=== PATIENT | female | born 2005 | race Hispanic/Latino ===

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

== ENCOUNTER 2024-01-08 13:50 | Observation (INO) | payer BC, OTHER, SELFPAY ==
[2024-01-08 14:16] VITALS: BP 130/88; PULSE 178
[2024-01-08 14:30] VITALS: BP 128/84; PULSE 110
[2024-01-08 14:45] VITALS: BP 129/82; PULSE 92
--- NOTE | 2024-01-08 14:48 | OBADM ---
This patient, Danielle Marquez, admitted to the OB room [facility] for observation. Patient/family oriented to hospital policies and general routines including ID bracelet, bed and alarms, visiting hours, pain management, procedures, bathroom and other care routines, personal items, smoking policy, room service/diet, and visiting hours. Patient/Family are encouraged to report perceived risks to care and to ask questions if they do not understand what they are told or what they should do.
[2024-01-08 14:50] LABS: Add Urine Microscopic? NO; Appearance Urine Clear (Clear); Bilirubin Urine Negative (Negative); Blood Urine Negative (Negative); Color Urine Yellow (Yellow); Glucose Urine UA Negative (Negative); Ketones Urine Negative (Negative); Leukocyte Esterase Ur Negative LEU/UL (Negative); Nitrate Urine Negative (Negative); Protein Urine Negative (Negative); Specific Grav Ur 1.006 (1.001-1.035); Urobilinogen Urine 0.2 mg/dL (<2.0); pH Urine 7.5 (5.0-9.0)
[2024-01-08 15:16] VITALS: BP 133/88; PULSE 107
[2024-01-08] MEDS: ONDANSETRON INJ 4 MG/2 ML VIAL IV PUSH (15:29)
[2024-01-08 15:37] VITALS: BMI 37.5
[2024-01-08 15:47] LABS: Alanine Aminotransferase 21 U/L (6-35); Albumin Level 3.5 g/dL (3.7-5.6); Alkaline Phosphatase 191 U/L (45-116); Anion Gap 8 mmol/L (4-12); Aspartate Amino Transferase 22 U/L (14-36); Bilirubin,Total 0.3 mg/dL (0.2-1.3); Blood Urea Nitrogen 7 mg/dL (8-21); Calcium 9.3 mg/dL (8.9-10.7); Carbon Dioxide 23 mmol/L (22-30); Chloride 103 mmol/L (98-107); Estimated CRCL calculation 195 ml/min; Estimated Glomerular Filt Rate > 60; Glucose 73 mg/dL (65-110); Potassium 4.1 mmol/L (3.4-5.0); Sodium 134 mmol/L (134-143)
--- NOTE | 2024-01-10 21:58 | P.PNOB_ITS ---
OB - Triage/Final Diagnosis Visit Information Comments/Additional reasons for admission: I have assessed the risk for this patient, Danielle Maqruez, and determined that she would benefit from observation care. Evaluation Laboratory results: Laboratory Tests 01/08/24 01/08/24 14:41 15:26 Sodium 134 Potassium 4.1 Chloride 103 Carbon Dioxide 23 Anion Gap 8 BUN 7 L Creatinine 0.40 L Estim Creat Clear Calc 195 Estimated GFR > 60 Glucose 73 Calcium 9.3 Total Bilirubin 0.3 AST 22 ALT 21 Alkaline Phosphatase 191 H Total Protein 7.0 Albumin 3.5 L Urine Color Yellow Urine Appearance Clear Urine pH 7.5 Ur Specific [place] 1.006 Urine Protein Negative Urine Glucose (UA) Negative Urine Ketones Negative Ur Blood (Man) Negative Urine Nitrate Negative Urine Bilirubin Negative Urine Urobilinogen 0.2 Leukocyte Esterase Rfl Negative Final Diagnosis (1) Nausea & vomiting: Code(s): R11.2 - Nausea with vomiting, unspecified Status: Acute
== END 2024-01-08 16:30 | disposition home or self-care (01) ==
PROVIDERS: Admitting Provider Obstetrics & Gynecology; Referring Provider Advanced Practice Midwife; Visit Provider Obstetrics & Gynecology
DX: O21.2 Late vomiting of pregnancy (principal); Z3A.35 35 weeks gestation of pregnancy
CPT/HCPCS: 36415; 80053; 81003; 96374; G0378; G0379; J2405

== ENCOUNTER 2024-01-11 16:12 | Outpatient (CLI) | payer BC, OTHER, SELFPAY ==
--- NOTE | ~2024-01-11 | US_ITS ---
RIGHT LOWER EXTREMITY VENOUS ULTRASOUND Ordering provider: Ninoska Loredo CNM History: . pain in limb . Comparison: None. FINDINGS: --COMMON FEMORAL: Patent and free of thrombus. Normal compressibility, phasic flow and augmentation. --PROXIMAL SUPERFICIAL FEMORAL: Patent and free of thrombus. Normal compressibility, phasic flow and augmentation. --DISTAL SUPERFICIAL FEMORAL: Patent and free of thrombus. Normal compressibility, phasic flow and au gmentation. --POPLITEAL: Patent and free of thrombus. Normal compressibility, phasic flow and augmentation. --POSTERIOR TIBIAL: Patent and free of thrombus. Normal compressibility, phasic flow and augmentation . IMPRESSION: Negative right lower extremity venous US. No deep vein thrombosis. Reviewed, dictated and finalized at location A.
== END 2024-01-11 16:13 | disposition home or self-care (01) ==
LOC: ANHIMG 16:13
PROVIDERS: Visit Provider Advanced Practice Midwife
DX: M79.609 Pain in unspecified limb (principal)
CPT/HCPCS: 93971

== ENCOUNTER 2024-01-13 09:32 | Emergency (ER) | payer BC, OTHER, SELFPAY ==
--- NOTE | 2024-01-13 11:29 | ED.LOWEXIN ---
HPI - Extremity Injury (Lower) General Chief Complaint: Extremity Injury, Lower Stated Complaint: right leg pain Time Seen by Provider: 01/13/24 11:14 History of Present Illness HPI Narrative: 18-year-old female presenting with right leg pain. Patient is approximately 36 weeks . States that for the last couple of days she has had a lot of pain in her right upper thigh. She had an ultrasound performed which showed no DVT but the pain is continued. No recent injuries. She called her OB today who told her to come to the ER. States that she has taken Tylenol with minimal relief. No numbness or weakness. No vaginal bleeding or discharge. No complaints regarding . Related Data Home Medications Medication Instructions Recorded Confirmed vit no.95-ferrous 1 tablet PO DAILY 06/27/23 10/12/23 fumarate 28 mg-folic acid 800 mcg tablet () vitamin B6-vitamin E-magnesium 1 tablet PO DAILY 06/27/23 10/12/23 tablet Allergies Allergy/AdvReac Type Severity Reaction Status Date / Time No Known Allergies Allergy Verified 01/13/24 11:15 Review of Systems Review of Systems: All systems reviewed & are unremarkable except as noted in HPI and below PMFSH Past Medical History Medical History Healthy female adult Exam Narrative: GENERAL: Well-appearing, no acute distress HEAD: Normocephalic, atraumatic. EYES: PERRLA and EOMI. ENT: Mucous membranes moist. NECK: Supple. CHEST: Clear to auscultation. No respiratory distress. HEART: Regular rate and rhythm ABDOMEN: Soft, appropriately gravid EXTREMITIES: Normal range of motion. tenderness in medial upper R thigh, no erythema or ecchymosis, no evidence of cellulitis or abscess, neurovascularly intact SKIN: Warm, dry, no rash. NEURO: Alert and oriented x3. PSYCH: Normal mood and affect. Course Vital Signs Vital signs: Vital Signs Temperature 97.7 F 01/13/24 11:54 Pulse Rate 116 H 01/13/24 11:54 Respiratory Rate 01/13/24 11:54 Blood Pressure 134/87 01/13/24 11:54 Pulse Oximetry 96 01/13/24 11:54 Temperature 97.7 F 01/13/24 11:54 Pulse Rate 116 H 01/13/24 11:54 Respiratory Rate 20 01/13/24 11:54 Blood Pressure 134/87 01/13/24 11:54 Pulse Oximetry 96 01/13/24 11:54 MDM - Extremity Injury (Lower) MDM Narrative Medical decision making narrative: 18-year-old female presenting with right thigh pain. Has already been evaluated for DVT which is negative. Exam remarkable for the above. She does have tenderness in medial aspect of her right upper thigh. Neurovascularly intact. No evidence of infection or trauma. Suspect muscular pain/spasm. Patient is safe for supportive care on an outpatient basis. Will send in for Tylenol and recommend using a heating pad. Patient will follow-up with her OB in 2 days. Appropriate return precautions given. Discharged in stable condition. Differential Diagnosis Differential diagnosis: Likely other (thigh pain, musculoskeletal pain) Medical Records Attestation: I reviewed the patient's medical records. Medical records narrative: Pt had DVT study two days ago that was negative. Critical Care Time Critical Care Time Critical Care Time: No Discharge Plan Discharge Clinical Impression: Pain in right thigh, Third trimester Patient Disposition: Home, Self-Care Condition: Stable Instructions: Antibiotic Form, Musculoskeletal Pain (ED) Additional Instructions: Please take the Tylenol as prescribed. You may use a heating pad to help with the pain as well. Follow-up with your OB as scheduled. If your symptoms worsen or other concerning symptoms arise, please return to the ER. Prescriptions: New acetaminophen [Tylenol Extra Strength] 500 mg tablet 1,000 mg PO Q8H PRN (Reason: pain) Qty: 20 0RF No Action ondansetron 4 mg tablet,disintegrating 4 mg PO Q6-8H P
[2024-01-13 11:54] VITALS: BP 134/87; PULSE 116; RESP 20; TEMP 36.5; O2SAT 96
[2024-01-13] MEDS: ACETAMINOPHEN 500 MG TABLET 1000 MG PO (12:12)
== END 2024-01-13 12:15 | disposition home or self-care (01) ==
PROVIDERS: Emergency Provider Emergency Medicine
DX: O99.891 Other specified diseases and conditions complicating pregnancy (principal); M79.651 Pain in right thigh; Z3A.36 36 weeks gestation of pregnancy
CPT/HCPCS: 99283; A9270

== ENCOUNTER 2024-01-25 10:31 | Inpatient (IN) | payer BC, OTHER, SELFPAY ==
[2024-01-25] VITALS (56 sets, daily range): BP systolic 77–148; BP diastolic 36–99; PULSE 67–128; RESP 18–22; TEMP 36.2–36.9; O2SAT 97–100; BMI 40.3
[2024-01-25 11:46] LABS: Add Urine Microscopic? YES; Appearance Urine Clear (Clear); Bacteria Urine Rare /hpf; Bilirubin Urine Negative (Negative); Blood Urine Negative (Negative); Color Urine Yellow (Yellow); Glucose Urine UA Negative (Negative); Ketones Urine Negative (Negative); Leukocyte Esterase Ur Negative LEU/UL (Negative); Need Manual Microscopic Reviewed; Nitrate Urine Negative (Negative); Protein Urine 4+ mg/dL (Negative); RBC Urine 0-2 /hpf (0-2); Specific Grav Ur 1.016 (1.001-1.035); Squamous Epithelial Cell Urine Few /hpf (Few); Urobilinogen Urine 0.2 mg/dL (<2.0); WBC Urine 0-5 /hpf (0-3); pH Urine 6.5 (5.0-9.0)
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
[2024-01-25 12:38] LABS: Creatinine Urine 63.3 mg/dL
[2024-01-25 12:40] LABS: Basophils Percent Auto 0.3 % (0.2-1.2); Eosinophils Percent Auto 0.4 % (0-4.4); Hematocrit 34.4 % (37.0-47.0); Hemoglobin 11.5 g/dL (12.0-15.0); Immature Granulocyte Absolute 0.08 K/mm3 (0.00-0.031); Immature Granulocyte Percent A 0.9 % (0-0.5); Lymphocytes Percent Auto 18.7 % (18.3-44.2); Mean Corpuscular HGB Conc 33.4 g/dl (32-36); Mean Corpuscular Hemoglobin 26.7 pg (26-34); Mean Platelet Volume 12.8 fl (7.4-10.4); Monocytes Absolute Auto 0.6 K/mm3 (0.1-0.6); Monocytes Percent Auto 6.4 % (2.6-8.5); Neutrophils Absolute Auto 6.6 K/mm3 (1.3-6.7); Neutrophils Percent Auto 73.3 % (45.5-73.1); Nucleated Red Blood Cells Perc 0.3 % (0.0-0.2); Platelet Count Result 214 k/mm3 (150-375); Red Cell Distribution Width 15.6 % (11.5-14.5); White Blood Count 9.1 K/mm3 (4.5-10.0)
[2024-01-25 12:52] LABS: Alanine Aminotransferase 13 U/L (6-35); Albumin Level 3.4 g/dL (3.7-5.6); Alkaline Phosphatase 235 U/L (45-116); Anion Gap 8 mmol/L (4-12); Aspartate Amino Transferase 20 U/L (14-36); Bilirubin,Total 0.3 mg/dL (0.2-1.3); Blood Urea Nitrogen 10 mg/dL (8-21); Calcium 9.3 mg/dL (8.9-10.7); Carbon Dioxide 19 mmol/L (22-30); Chloride 105 mmol/L (98-107); Estimated Glomerular Filt Rate > 60; Glucose 84 mg/dL (65-110); Potassium 4.4 mmol/L (3.4-5.0); Sodium 132 mmol/L (134-143); Uric Acid 4.4 mg/dL (3.0-5.9)
[2024-01-25 13:11] LABS: Rapid Plasma Reagin Non-Reactive (NonReactive)
[2024-01-25 13:12] LABS: Total Protein Urine Random > 600 mg/dL
[2024-01-25 13:13] LABS: Ur Ttl Prot Creatinine Ratio > 9.48 mg/mg (0-0.20)
[2024-01-25 13:32] LABS: HIV 1/2 Ab P24 Ag Result Negative (Negative)
--- NOTE | 2024-01-25 14:27 | LDADM ---
This patient, Danielle Marquez, was admitted to [facility] on 01/25/24 at 13:28. Plans for labor, pain management and were discussed with patient. Patient/family oriented to hospital policies and general routines including ID bracelet, bed and alarms, visiting hours, pain management, procedures, bathroom and other care routines, personal items, smoking policy, room service/diet and guest tray routines, security routines, and visiting hours. Patient/Family are encouraged to report perceived risks to care and to ask questions if they do not understand what they are told or what they should do. See [facility] for further documentation.
[2024-01-25] MEDS: LACTATED RINGERS 1,000 ML 125 ML IV CONT (15:43)
[2024-01-25] MEDS: ACETAMINOPHEN 500 MG TABLET 1000 MG PO (15:44)
[2024-01-25] MEDS: ONDANSETRON INJ 4 MG/2 ML VIAL IV PUSH (16:42)
[2024-01-25] MEDS: FAMOTIDINE 20 MG/2 ML VIAL IV PUSH (16:42)
[2024-01-25 17:19] LABS: Rubella IgG Antibody 64.9 IU/ML
--- NOTE | 2024-01-25 17:57 | WPDHPUPDATE1 ---
History and Physical Update Update Date/Time: 01/25/24 15:57 History and Physical has been reviewed, including an updated exam of the patient. Patient meets criteria for preeclampsia without severe features with elevated BPs and severe proteinuria. Denies headaches, vision changes, chest pain, dyspnea, RUQ pain or epigastric pain. Risks and benefits of primary c section for suspected macrosomia discussed with patient who voices understanding and desires to proceed. Risks, benefits, and alternatives have been discussed and questions answered. Patient agrees to proceed with procedure.
--- NOTE | 2024-01-25 18:01 | P.PCNOB_ITS ---
OB - Delivery Note Procedure Delivery date: 01/25/24 Pre-op diagnosis: Macrosomia and Preeclampsia w/o severe features Post-op Diagnosis: Same Delivery monitor: External FHT Prior to decision for section, ACOG/SMFM labor guidelines were considered and discussed with the patient and staff. Decision made to proceed with the section.: Yes Procedure Performed: Primary Primary branch: low cervical, transverse Surgeon: Jovanny Martinez MD Anesthesia type: Spinal Description of Procedure/Findings: The patient was taken to the operating room where she was placed in the dorsal supine position with a leftward tilt. The electronic monitor was placed and heart rate was found to be reassuring. She was prepped and draped in the normal sterile fashion, and anesthesia was checked to be adequate. A Pfannenstiel skin incision was made with the scalpel and carried through to the underlying layer of fascia with the scalpel. The fascia was incised in the midline and the incision extended laterally with the Rudolph scissors. The superior aspect of the fascial incision was then grasped with Reinaldo clamps, elevated, and the underlying rectus muscles dissected off bluntly and with Rudolph scissors. Attention was then turned to the inferior aspect of the fascial incision, which in similar fashion was grasped, elevated, and the rectus muscles dissected off.? The rectus muscles were then in the midline, and the peritoneum entered bluntly. The peritoneal incision was extended superiorly and inferiorly with good visualization of the bladder. With the bladder blade providing retraction and visualization, the lower uterine segment was incised in a transverse fashion with the scalpel. The uterine incision was then extended laterally. The bladder blade was removed and the 's head was elevated and delivered atraumatically. The remainder of the infant was then delivered without difficulty, and the infant's nose and mouth were suctioned with the bulb suction. The umbilical cord was doubly clamped and cut. The infant was then handed off to the waiting nursing staff. Specimens then obtained as listed below. The placenta was then removed manually and the uterus was exteriorized and cleared of all clots and debris. The uterine incision was repaired with 0- Monocryl in a running, interlocked fashion. The posterior cul-de-sac was manually cleared of all clots and debris. The uterus was returned to the abdomen. The gutters were then manually cleared of all clots and debris.? The uterine incision was visualized to be hemostatic. The fascia was reapproximated with 0-Vicryl in a running fashion. The subcutaneous tissues were irrigated with warmed normal saline, and hemostasis was assured. The subcutaneous tissue was greater than 2 cm and closed in a running fashion with 2-0 plain gut suture.? The skin was closed with 4-0 monocryl in a running subcuticular stitch. Fundal pressure was applied to express remaining intrauterine clots and debris. The patient tolerated the procedure well. Sponge, lap, and needle counts were correct times three per nursing. The patient was taken to the recovery room in stable condition. Specimen: No Estimated Blood Loss: 785 Pathology: None sent Complications: No immediate complications Condition: Stable Disposition: Floor Baby Date of : 01/25/24 Gestational Age by Date: 37 gender: Male Weight (pounds): 10 Weight (ounces): 3 presentation: vertex Placenta delivery description: Expressed Cord Vessel Description: 3 Vessels and Delayed Cord Clamping
[2024-01-25] MEDS: OXYTOCIN 30 UNITS/NS 500 ML 30 UNITS/500 ML BAG 125 UNITS IV CONT (19:35)
--- NOTE | 2024-01-25 20:44 | OBPPTRN ---
Patient transferred to post room #284 via bed. Support person present. Oriented to unit, room, information board, rooming in, admission packet and security measures. Patient verbalizes understanding.
[2024-01-25] MEDS: diphenhydrAMINE HCl INJ 50 MG/ML VIAL 25 MG IV PUSH (20:45)
--- NOTE | 2024-01-25 21:15 | PC.NURSE ---
Surgery Recovery completed at 2009, patient transferred to first floor nursery to visit . Patient transferred to OB 2nd floor at 2044.
[2024-01-26 00:07] VITALS: BP 137/73; PULSE 124; RESP 20; TEMP 37.9; O2SAT 98
[2024-01-26] MEDS: ACETAMINOPHEN 325 MG TABLET 650 MG PO ×4 (00:15→23:00)
[2024-01-26] MEDS: KETOROLAC 15 MG/ML VIAL (*BKC) IV PUSH ×2 (00:15→06:45)
[2024-01-26 03:49] VITALS: BP 136/76; PULSE 118; RESP 20; TEMP 37.6; O2SAT 98
[2024-01-26 05:24] LABS: Basophils Percent Auto 0.2 % (0.2-1.2); Eosinophils Percent Auto 0.2 % (0-4.4); Hematocrit 28.1 % (37.0-47.0); Hemoglobin 9.2 g/dL (12.0-15.0); Immature Granulocyte Absolute 0.05 K/mm3 (0.00-0.031); Immature Granulocyte Percent A 0.4 % (0-0.5); Lymphocytes Absolute Auto 1.72 K/mm3 (0.9-3.2); Lymphocytes Percent Auto 13.5 % (18.3-44.2); Mean Corpuscular HGB Conc 32.7 g/dl (32-36); Mean Corpuscular Hemoglobin 26.1 pg (26-34); Mean Corpuscular Volume 79.8 fl (80-100); Mean Platelet Volume 12.9 fl (7.4-10.4); Monocytes Absolute Auto 0.8 K/mm3 (0.1-0.6); Monocytes Percent Auto 6.4 % (2.6-8.5); Neutrophils Absolute Auto 10.1 K/mm3 (1.3-6.7); Neutrophils Percent Auto 79.3 % (45.5-73.1); Platelet Count Result 161 k/mm3 (150-375); Red Blood Count 3.52 M/mm3 (4.2-5.4); Red Cell Distribution Width 15.7 % (11.5-14.5); White Blood Count 12.8 K/mm3 (4.5-10.0)
[2024-01-26 06:45] VITALS: BP 150/94; PULSE 110; RESP 18; TEMP 36.8; O2SAT 96
[2024-01-26] MEDS: diphenhydrAMINE HCl INJ 50 MG/ML VIAL 25 MG IV PUSH (06:52)
--- NOTE | 2024-01-26 08:30 | PC.NURSE ---
Introductions were made, then consulted with patient to assess needs related to . Infant was transferred to [facility]. Mother states that she would like to pump. I educated mother that pumping as soon as possible would be best to develop a supply because she delivered her son last night. Mother states understanding but denies wanting to start pumping at this time. She states that she is going to leave on a pass to see her son and would like to talk about pumping again once she returns.
--- NOTE | 2024-01-26 08:33 | PM.OBPNVD ---
OB - PN: Subj Subjective Date/time seen: 01/26/24 08:33 Patient comments: no complaints, pain well controlled, tolerating diet and flatus present OB - PN: Obj Data Labs 01/26/24 03:51 01/25/24 12:27 Labs: Laboratory Results - last 24 hr 01/25/24 01/25/24 01/25/24 11:06 12:27 15:33 WBC 9.1 RBC 4.30 Hgb 11.5 L Hct 34.4 L MCV 80.0 MCH 26.7 MCHC 33.4 RDW 15.6 H Plt Count 214 MPV 12.8 H Immature Gran % (Auto) 0.9 H Neut % (Auto) 73.3 H Lymph % (Auto) 18.7 [place] % (Auto) 6.4 Eos % (Auto) 0.4 Baso % (Auto) 0.3 Lymph # (Auto) 1.70 [place] # (Auto) 0.6 Eos # (Auto) 0.0 Baso # (Auto) 0.0 Abs Immat Gran (auto) 0.08 H Absolute Neuts (auto) 6.6 Absolute Nucleated RBC 0.030 H Nucleated RBC % 0.3 H Sodium 132 L Potassium 4.4 Chloride 105 Carbon Dioxide 19 L Anion Gap 8 BUN 10 Creatinine 0.50 L Estim Creat Clear Calc Not Reportable Estimated GFR > 60 Glucose 84 Uric Acid 4.4 Calcium 9.3 Total Bilirubin 0.3 AST 20 ALT 13 Alkaline Phosphatase 235 H Total Protein 7.0 Albumin 3.4 L Urine Color Yellow Urine Appearance Clear Urine pH 6.5 Ur Specific [place] 1.016 Urine Protein 4+ H Urine Glucose (UA) Negative Urine Ketones Negative Ur Blood (Man) Negative Urine Nitrate Negative Urine Bilirubin Negative Urine Urobilinogen 0.2 Add Ur Microanalysis Reviewed Leukocyte Esterase Rfl Negative Urine RBC 0-2 Urine WBC 0-5 Ur Squamous Epith Cells Few Urine Bacteria Rare Urine Casts 3-5 U Random Total Protein > 600 Urine Creatinine 63.3 Protein/Creat Ratio 2 > 9.48 H RPR Non-reactive HIV 1&2 Ab/P24 Ag 4thGn Negative Rubella IgG Antibody 64.9 Blood Type O Positive Antibody Screen Negative 01/26/24 03:51 WBC 12.8 H RBC 3.52 L Hgb 9.2 L Hct 28.1 L MCV 79.8 L MCH 26.1 MCHC 32.7 RDW 15.7 H Plt Count 161 MPV 12.9 H Immature Gran % (Auto) 0.4 Neut % (Auto) 79.3 H Lymph % (Auto) 13.5 L [place] % (Auto) 6.4 Eos % (Auto) 0.2 Baso % (Auto) 0.2 Lymph # (Auto) 1.72 [place] # (Auto) 0.8 H Eos # (Auto) 0.0 Baso # (Auto) 0.0 Abs Immat Gran (auto) 0.05 H Absolute Neuts (auto) 10.1 H Absolute Nucleated RBC 0.000 Nucleated RBC % 0.0 Sodium Potassium Chloride Carbon Dioxide Anion Gap BUN Creatinine Estim Creat Clear Calc Estimated GFR Glucose Uric Acid Calcium Total Bilirubin AST ALT Alkaline Phosphatase Total Protein Albumin Urine Color Urine Appearance Urine pH Ur Specific [place] Urine Protein Urine Glucose (UA) Urine Ketones Ur Blood (Man) Urine Nitrate Urine Bilirubin Urine Urobilinogen Add Ur Microanalysis Leukocyte Esterase Rfl Urine RBC Urine WBC Ur Squamous Epith Cells Urine Bacteria Urine Casts U Random Total Protein Urine Creatinine Protein/Creat Ratio 2 RPR HIV 1&2 Ab/P24 Ag 4thGn Rubella IgG Antibody Blood Type Antibody Screen OB - PN A/P Plan day: 1 Comments: Post Op LTCS - no problems, routine recovery Time Spent With Patient Time: Total time spent is greater than 50% in coordination of care (as documented) at patient's floor/unit and/or counseling patient: Exam Const: General: cooperative, healthy appearing, comfortable and no acute distress Resp: Auscultation: no crackles, no rales, no rhonchi and no wheezes Cardio: Rhythm: regular rhythm Heart sounds: no click and no murmurs GI: Inspection: non-distended Auscultation: normal bowel sounds Extrem: General: normal to inspection, no pedal edema and no calf tenderness
--- NOTE | 2024-01-26 09:01 | WPDANLDPN2 ---
Anes-Prog Note L&D Date/Time: 01/26/24 09:01 Comfortable throughout: section Neuraxial method: spinal Epidural/Spinal procedure site: clean & non-tender Neuro status: Neuro function grossly intact. Cardiovascular status: normal Respiratory status: normal Airway patency: baseline Mental status: baseline Post-Op hydration status: normal Vital Signs: Last Vital Signs Temp 36.8 C 01/26/24 06:45 Pulse 110 H 01/26/24 06:45 Resp 18 01/26/24 06:45 BP 150/94 H 01/26/24 06:45 Pulse Ox 96 01/26/24 06:45 O2 Del Method Room Air 01/26/24 06:45 Pain score (VAS): 4/10 I/O: Intake & Output 01/25/24 01/26/24 01/26/24 23:59 07:59 15:59 Intake Total 500 Output Total 365 375 Balance -365 125 Post-procedural complaints: pruritis moderate, treatment effective Patient feedback: Patient satisfied with anesthetic care.
--- NOTE | 2024-01-26 09:02 | WPDANLDNPN2 ---
Anes-Prog Note L&D-Neuraxial Date/Time: 01/26/24 09:02 Neuraxial medications: intrathecal PF morphine Opiod-related complaints: pruritis moderate, treatment effective Patient feedback: Patient satisfied with post-operative pain management.
[2024-01-26] MEDS: SIMETHICONE 80 MG TAB.CHEW PO ×2 (09:30→17:27)
[2024-01-26] MEDS: POLYSACCHARIDE IRON COMPLEX 150 MG CAPSULE PO ×2 (09:30→17:27)
[2024-01-26] MEDS: DOCUSATE SODIUM 100 MG CAPSULE PO ×2 (09:30→17:27)
--- NOTE | 2024-01-26 11:50 | PC.NURSE ---
Pt left on a 6 hour pass to go see baby at [facility] with her twin brother.
--- NOTE | 2024-01-26 17:19 | PC.NURSE ---
Pt back from seeing baby at [facility]
[2024-01-26] MEDS: IBUPROFEN 600 MG TABLET PO ×2 (17:27→23:00)
[2024-01-26 19:25] VITALS: BP 129/90; PULSE 105; RESP 18; TEMP 36.6; O2SAT 99
[2024-01-26] MEDS: HYDROcodone/acetaminophen (*CRX) 5-325 MG TABLET 1 TAB PO ×2 (20:05→23:00)
[2024-01-26] MEDS: diphenhydrAMINE HCl CAP 25 MG CAPSULE (22:28)
[2024-01-27] MEDS: HYDROcodone/acetaminophen (*CRX) 5-325 MG TABLET 1 TAB PO ×2 (05:10→10:03)
[2024-01-27] MEDS: ACETAMINOPHEN 325 MG TABLET 650 MG PO ×2 (05:10→11:24)
[2024-01-27] MEDS: IBUPROFEN 600 MG TABLET PO ×2 (05:10→11:24)
[2024-01-27 07:44] VITALS: BP 128/84; PULSE 97; RESP 20; TEMP 36.8; O2SAT 97
[2024-01-27] MEDS: SIMETHICONE 80 MG TAB.CHEW PO ×2 (08:51→11:24)
[2024-01-27] MEDS: MULTIVIT/MIN/PREN/FOL AC/IRON TABLET 1 TAB PO (08:51)
[2024-01-27] MEDS: DOCUSATE SODIUM 100 MG CAPSULE PO (08:51)
[2024-01-27] MEDS: POLYSACCHARIDE IRON COMPLEX 150 MG CAPSULE PO (08:51)
--- NOTE | 2024-01-27 09:06 | PM.OBPNVD ---
OB - PN: Subj Subjective Date/time seen: 01/27/24 09:06 Patient comments: no complaints, pain well controlled, incisional pain, tolerating diet and flatus present OB - PN: Obj Data Labs 01/26/24 03:51 01/25/24 12:27 OB - PN A/P Plan day: 2 Plan: routine care Comments: POD#2 LTCS - no problems, Time Spent With Patient Time: Total time spent is greater than 50% in coordination of care (as documented) at patient's floor/unit and/or counseling patient: Exam Const: General: comfortable, no acute distress and alert Resp: Effort & Inspection: normal respiratory effort Auscultation: no crackles, no rales and no rhonchi Cardio: Rate: regular rate Heart sounds: no click, no murmurs and no rubs GI: Inspection: non-distended Auscultation: normal bowel sounds Other: Incision - CDI Extrem: General: normal to inspection, no pedal edema and no calf tenderness
--- NOTE | 2024-01-27 09:07 | PM.OBDSVD ---
DS: Admitting Diagnosis Discharge Date 01/27/24 Admitting Diagnosis term DS: Discharge Diagnosis Discharge Diagnosis (1) delivery delivered: Code(s): O82 - Encounter for delivery without indication Status: Acute OB - DS: Summary OB Procedures : None OB Procedures Intrapartum: OB Procedures: : None Peripartum Data Procedures: Procedures Operation Date: 01/25/24 17:00 Actual Procedure Side Surgeon p Section Bilateral Jovanny Martinez MD Time Spent with Patient Time attestation: Total time spent providing and/or coordinating discharge services: Discharge Plan Discharge Discharging Clinician: Juice Carvajal Patient Disposition: Home, Self-Care Activity: pelvic rest Diet: regular Patient Instructions: Antibiotic Form Stand Alone Forms: General Discharge Information Follow-up/Referrals: Juice Carvajal MD [Physician] - Discharge Medications: New oxycodone-acetaminophen 5-325 mg tablet 1 tablet PO Q4H PRN (Reason: pain) Qty: 25 0RF Continued ondansetron 4 mg tablet,disintegrating 4 mg PO Q6-8H PRN (Reason: nausea and vomiting) Qty: 7 0RF loratadine 10 mg tablet 10 mg PO DAILY Qty: 30 0RF vitamin B6-vitamin E-magnesium Tablet 1 tablet PO DAILY PNV cmb#[id number]-ferrous fumarate-FA [] 28 mg iron- 800 mcg tablet 1 tablet PO DAILY acetaminophen [Tylenol Extra Strength] 500 mg tablet 1,000 mg PO Q8H PRN (Reason: pain) Qty: 20 0RF Discontinued promethazine 12.5 mg tablet 12.5 mg PO TID Qty: 20 0RF nitrofurantoin monohyd/m-cryst [Macrobid] 100 mg capsule 100 mg PO Q12H 5 Days Qty: 10 0RF Rx Instructions: must administer with a meal/food Date of admission: 01/25/24 13:28 Primary Care Provider: UNKNOWN,DOCTOR Admitting Provider: Juice Carvajal Attending physician on admission: Juice Carvajal Condition: Stable
[2024-01-27] MEDS: INFLUENZA TRIVALENT VACCINE 45 MCG/0.5 ML SYRINGE IM (10:04)
[2024-01-28 10:12] VITALS: BP 127/72; PULSE 119; RESP 18; TEMP 37.2; O2SAT 100
== END 2024-01-27 11:40 | disposition home or self-care (01) | DRG 788 ==
LOC: ANHOBPP 13:47 → ANHLDR 17:35 → ANHOB2 20:50
PROVIDERS: Admitting Provider Obstetrics & Gynecology; Referring Provider Advanced Practice Midwife; Visit Provider Obstetrics & Gynecology
PROC: 10D00Z1 Extraction of Products of Conception, Low, Open Approach (ICD-10-PCS; CPT 59514; principal; 2024-01-25 17:00)
DX: O36.63X0 Maternal care for excessive fetal growth, third trimester, not applicable or unspecified (principal); Z37.0 Single live birth; Z3A.37 37 weeks gestation of pregnancy; O14.94 Unspecified pre-eclampsia, complicating childbirth; Z23 Encounter for immunization
CPT/HCPCS: 36415; 80053; 81001; 82570; 84156; 84550; 85025; 86592; 86703; 86762; 86850; 86900; 86901; 90471; 90656; A9270; G0008; G0378; G0379; G0432; J1200; J1885; J2274; J2405; J2590; J7120

== ENCOUNTER 2024-07-07 19:47 | Emergency (ER) | payer OTHER, SELFPAY ==
[2024-07-07 19:50] VITALS: BP 144/99; PULSE 111; RESP 16; TEMP 36.8; O2SAT 98
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
--- OUTSIDE RECORDS SUMMARY | 2024-07-07 19:50 | XMS_ITS | Clinical Summary ---
Author Organization [facility] al Address [address] [place] [address] Care Team Providers Care Billing Collections Specialist Name Role Phone Unknown, Notinfile Primary Care Provider Unavail able Allergies No known active allergies Medications benzonatate (TESSALON) 100 mg capsuleIndicati ons:Cough Take 1 capsule (100 mg total) by mouth 2 (two) times a day as needed for cough 20 capsule 04/26/2023 Active Social History Tobacco Use Types Packs/Day Years Used Date Smoking Tobacco: Never Assessed Personal Safety Answer Date Recorded Have you ever been in or are you currently in a harmful physical or emotional relationship or is someone making you feel afraid or unsafe? Denies 04/26/2023 Comments Unknown Sex and Gender Information Value Date Recorded Sex Assigned at Not on file Legal Sex Female 8:54 AM WET FINISHER WOOL Gender Identity Not on file Sexual Orientation Not on file Obstetrics History Growth Chart Information Age Height Weight [id number]-[id number] th Percentile BMI Percentile Head Circum Head Circum Percentile Date 17 years 157.5 cm (5' 2 ) 63.5 kg (140 lb) 83.49%* 2022 * [facility] (Girls, 2-20 Years) Last Filed Vital Signs Vital Sign Reading Time Taken Comments Blood Pressure 112/65 04/26/2023 10:16 AM WET FINISHER WOOL Pulse 90 04/26/2023 10:16 AM WET FINISHER WOOL Temperature 36.7 C (98.1 F) 04/26/2023 9:21 AM WET FINISHER WOOL Respiratory Rate 18 04/26/2023 10:16 AM WET FINISHER WOOL Oxygen Saturation 100% 04/26/2023 10:16 AM WET FINISHER WOOL Inhaled Oxygen Concentration - - Weight 63.5 kg (140 lb) 04/26/2023 9:21 AM WET FINISHER WOOL Height 157.5 cm (5' 2 ) 04/26/2023 9:21 AM WET FINISHER WOOL Body Mass Index 25.61 04/26/2023 9:21 AM WET FINISHER WOOL Body Mass Index Percentile 83.49% 04/26/2023 9:2 1 AM WET FINISHER WOOL Growth Chart: [facility] (Girls, 2- 20 Years) Plan of Treatment Health Maintenance Due Date Last Done Comments Depression Screening 2004 Hepatitis C Screening 2004 Meningococcal B Vaccine (1 o f 2 - Standard) 2020 Regular Well Visit/Exam 18-64 2022 Influenza Vaccine (#1) 2023 , 01/21/2020, 02/18/2019, Additional history exists DTaP/Tdap/Td Vaccine (6 - Td or Tdap) 03/03/2026 03/03/2016, 12/24/2008, 02/28/2007, Additional history exists Pneumococcal vaccine <65 Completed 11/29/2006, 04/30 Hepatitis B Screening Completed 08/27/2007 , 11/29/2006, 11/29/2006, Additional history exists Varicella Vaccines Completed 12/24/2008, 0 12/24/2008, 11/29/2006 HPV Vaccines Completed 08/01/2017, 03/03/2016 Meningococcal Vaccine Completed 05/09/2022, 016 Insurance [facility] ACCESS CHOICE Member Subscriber Plan / Payer (Ef fective 2022-Present) Name:Danielle Doty Relation to Subscriber:Child Name:JUAN CARLOS DOTY Date of :1980 Address: [address] [place] [id number] Payer ID:[id number] (NAIC) Type: [employer]IANCE Address: [facility] [id number] [id number] Care Teams Billing Collections Specialist Relationship Specialty Start Date End Date Unknown, Notinfile PCP - General 04/26/23
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
--- OUTSIDE RECORDS SUMMARY | 2024-07-07 19:50 | XMS_ITS | Referral Summary ---
Author Organization [facility] al Address [address] [place] [address] Care Team Providers Care Windows Admin Name Role Phone Unknown, Notinfile Primary Care [...] on file Legal Sex Female 8:54 AM PIPE COVERER Gender Identity Not on file Sexual Orientation Not on file Last Filed Vital Signs Vital Sign Reading Time Taken Comments Blood Pressure 112/65 04/26/2023 10:16 AM PIPE COVERER Pulse 90 04/26/2023 10:16 AM PIPE COVERER Temperature 36.7 C (98.1 F) 04/26/2023 9:21 AM PIPE COVERER Respiratory Rate 18 04/26/2023 10:16 AM PIPE COVERER Oxygen Saturation 100% 04/26/2023 10:16 AM PIPE COVERER Inhaled Oxygen Concentration - - Weight 63.5 kg (140 lb) 04/26/2023 9:21 AM PIPE COVERER Height 157.5 cm (5' 2 ) 04/26/2023 9:21 AM PIPE COVERER Body Mass Index 25.61 04/26/2023 9:21 AM PIPE COVERER Body Mass Index Percentile 83.49% 04/26/2023 9:2 1 AM PIPE COVERER Growth Chart: [facility] (Girls, 2- 20 Years) Plan of Treatment Not on file Insurance [employer] ACC[employer] CHO[employer] Care Teams Windows Admin Relationship Specialty Start Date End Date Unknown, Notinfile PCP - General 04/26/23
--- OUTSIDE RECORDS SUMMARY | 2024-07-07 20:32 | XMS_ITS | Clinical Summary ---
Author Organization [facility] Address [address] [place] [address] Care Team Providers Care Principal Ios Developer Name Role Phone None, Provider MD Primary [...] 06/03/2020 Immunizations Name Administration Dates Next Due [id number] (Pediarix) 11/29/2006 DTaP-IPV (Kinrix) 12/24/2008 DTaP-IPV/Hib (Pentacel) [...] on file Legal Sex Female 9:19 AM KITCHEN RUNNER Gender Identity Not on file Sexual Orientation Not on file Last Filed Vital Signs Vital Sign Reading Time Taken Comments Blood Pressure 118/74 03/28/2023 10:06 AM KITCHEN RUNNER Pulse 90 03/28/2023 10:06 AM KITCHEN RUNNER Temperature 36.4 C (97.6 F) 03/28/2023 10:06 AM KITCHEN RUNNER Respiratory Rate 16 03/28/2023 10:0 6 AM KITCHEN RUNNER Oxygen Saturation 100% 03/28/2023 10: 06 AM KITCHEN RUNNER Inhaled Oxygen Concentration - - Weight 67.3 kg (148 lb 5.9 oz) 03/28/20 23 10:06 AM KITCHEN RUNNER Height 157.5 cm (5' 2 ) 03/28/2023 10:0 6 AM KITCHEN RUNNER Body Mass Index 27.14 03/28/2023 10:06 AM KITCHEN RUNNER Body Mass Index Percentile 88.91% 03/28 10:06 AM KITCHEN RUNNER Growth Chart: [facility] (Girls, 2- 20 Years) Plan of Treatment Health Maintenance Due Date Last Done Comments PHQ-2 (Physician [place]) 2016 Meningococcal B Vaccine (1 of 2 - Standard) 2020 Annual Physical 06/02/2021 06/02/2020 Hepatitis C 2022 COVID-19 Vaccine ( season) 2023 Influenza Adult (#1) 2024 01/21/2020, 02/18/2019, 01/31/2018, Additional history exists PHQ-2 (Physician [place]) 04/30/2024 DTaP, Tdap and Td Vaccines (6 [...] patient's age to complete this topic Insurance [facility] Care Teams Principal Ios Developer Relationship Specialty Start Date End Date None, Provider, MD PCP - General UNKNOWN PHYSICIAN SPECIALTY 03/28/23
--- OUTSIDE RECORDS SUMMARY | 2024-07-07 20:32 | XMS_ITS | Referral Summary ---
Author Organization [facility] al Address [address] [place] [address] Care Team Providers Care Swimming Pool Cleaner Name Role Phone Unknown, Notinfile Primary Care [...] on file Legal Sex Female 8:54 AM ADMISSION DISCHARGE RN Gender Identity Not on file Sexual Orientation Not on file Last Filed Vital Signs Vital Sign Reading Time Taken Comments Blood Pressure 112/65 04/26/2023 10:16 AM ADMISSION DISCHARGE RN Pulse 90 04/26/2023 10:16 AM ADMISSION DISCHARGE RN Temperature 36.7 C (98.1 F) 04/26/2023 9:21 AM ADMISSION DISCHARGE RN Respiratory Rate 18 04/26/2023 10:16 AM ADMISSION DISCHARGE RN Oxygen Saturation 100% 04/26/2023 10:16 AM ADMISSION DISCHARGE RN Inhaled Oxygen Concentration - - Weight 63.5 kg (140 lb) 04/26/2023 9:21 AM ADMISSION DISCHARGE RN Height 157.5 cm (5' 2 ) 04/26/2023 9:21 AM ADMISSION DISCHARGE RN Body Mass Index 25.61 04/26/2023 9:21 AM ADMISSION DISCHARGE RN Body Mass Index Percentile 83.49% 04/26/2023 9:2 1 AM ADMISSION DISCHARGE RN Growth Chart: CDC (Girls, 2- 20 Years) Plan of Treatment Not on file Insurance [employer] ACCESS CHOICE [employer] Care Teams Swimming Pool Cleaner Relationship Specialty Start Date End Date Unknown, Notinfile PCP - General 04/26/23
--- OUTSIDE RECORDS SUMMARY | 2024-07-07 20:32 | XMS_ITS | Clinical Summary ---
Author Organization [facility] al Address [address] [place] [address] Care Team Providers Care Paper Novelty Maker Name Role Phone Unknown, Notinfile Primary Care [...] on file Legal Sex Female 8:54 AM LAND SALES AGENT Gender Identity Not on file Sexual Orientation Not on file Obstetrics History Growth Chart Information Age Height Weight [id number] th Percentile BMI Percentile Head Circum Head Circum Percentile Date 17 years 157.5 cm (5' 2 ) 63.5 kg (140 lb) 83.49%* 2022 * [facility] (Girls, 2-20 Years) Last Filed Vital Signs Vital Sign Reading Time Taken Comments Blood Pressure 112/65 04/26/2023 10:16 AM LAND SALES AGENT Pulse 90 04/26/2023 10:16 AM LAND SALES AGENT Temperature 36.7 C (98.1 F) 04/26/2023 9:21 AM LAND SALES AGENT Respiratory Rate 18 04/26/2023 10:16 AM LAND SALES AGENT Oxygen Saturation 100% 04/26/2023 10:16 AM LAND SALES AGENT Inhaled Oxygen Concentration - - Weight 63.5 kg (140 lb) 04/26/2023 9:21 AM LAND SALES AGENT Height 157.5 cm (5' 2 ) 04/26/2023 9:21 AM LAND SALES AGENT Body Mass Index 25.61 04/26/2023 9:21 AM LAND SALES AGENT Body Mass Index Percentile 83.49% 04/26/2023 9:2 1 AM LAND SALES AGENT Growth Chart: [facility] (Girls, 2- 20 Years) Plan of Treatment [...] 03/03/2016 Meningococcal Vaccine Completed 05/09/2022, 016 Insurance [employer] CHOICE [facility] ACCESS CHOICE Member Subscriber Plan / Payer (Ef fective 2022-Present) Name:Danielle Doty Relation to Subscriber:Child Name:JUAN CARLOS DOTY Date of :1980 Address: [address] [place] [address] Payer ID:[id number] (NAIC) Type: [employer] Address: [facility] [id number] [place] [id number] Care Teams Paper Novelty Maker Relationship Specialty Start Date End Date Unknown, Notinfile PCP - General 04/26/23
--- NOTE | 2024-07-07 21:06 | ED_ITS ---
HPI - Eye Problem General Chief complaint: Eye Problems Stated complaint: Left eye pain- left contacts in really long time Time Seen by Provider: 07/07/24 20:19 History of Present Illness HPI Narrative: 18-year-old otherwise healthy female presenting to the emergency department for left eye pain. Patient has had a daily contact lens in her left eye for several months. She took it out today as she was having some dry eye symptoms and knows that she was having photophobia and pain in her left eye. Denies any scratching or injury. No tearing or drainage. No headache or vision changes, nausea vomiting. No fever chills. She was otherwise in her normal state of health. Does not wear contact in her right eye. Patient does not wear any other corrective lenses. Related Data Home Medications ?Medication ?Instructions ?Recorded ?Confirmed ?Last Taken ?Type vit no.95-ferrous 1 tablet PO DAILY 06/27/23 01/25/24 01/22/24 09:00 History fumarate 28 mg-folic acid 800 mcg tablet () vitamin B6-vitamin E-magnesium 1 tablet PO DAILY 06/27/23 01/25/24 01/19/24 09:00 History tablet Allergies Allergy/AdvReac Type Severity Reaction Status Date / Time No Known Allergies Allergy Verified 07/07/24 19:48 Review of Systems Review of Systems: As [facility] Past Medical History Medical History Healthy female adult Social History Social History Smoking status: Never smoker Substance use: never Do You Feel Safe in your Home?: Yes Lack of Transportation: No Lack of Food: Never True Current Housing: I Have Housing Concerned About Future Housing: No Difficulty Paying Gas/Electric Bills: No Difficulty Paying for Meds: No Currently Unemployed: No Education: High School Diploma/GED Difficulty w/ Childcare or Family Care: No Spiritual care concerns: No Exam Narrative: GENERAL: [Well-appearing, well-nourished, and in no acute distress.] HEAD: [Normocephalic, atraumatic.] EYES: [PERRLA and EOMI.] Mild conjunctival irritation without significant injection, limbus bearing. No hyphema or hypopyon noted. Fluorescein dye shows mild corneal abrasion inferior medial to the visual axis on the left eye. No ulcerations evident, negative Jason sign ENT: Nares clear, no rhinorrhea or epistaxis. Mucous membranes moist. NECK: Supple. CHEST: [Clear to auscultation. No respiratory distress.] HEART: [Regular rate and rhythm]. No murmur heard. [Normal peripheral pulses.] ABDOMEN: [Soft, nondistended], [nontender], [No rigidity or guarding] EXTREMITIES: Normal range of motion. [No edema.] SKIN: Warm, dry, no rash. NEURO: [No focal deficits]. Alert and oriented [x3.] PSYCH: [Normal mood and affect.] Course Vital Signs Vital signs: Vital Signs Temperature 36.8 C 07/07/24 19:50 Pulse Rate 111 H 07/07/24 19:50 Respiratory Rate 16 07/07/24 19:50 Blood Pressure 144/99 H 07/07/24 19:50 Pulse Oximetry 98 07/07/24 19:50 Oxygen Delivery Room Air 07/07/24 19:50 Temperature 36.8 C 07/07/24 19:50 Pulse Rate 111 H 07/07/24 19:50 Respiratory Rate 16 07/07/24 19:50 Blood Pressure 144/99 H 07/07/24 19:50 Pulse Oximetry 98 07/07/24 19:50 Oxygen Delivery Room Air 07/07/24 19:50 MDM - Eye Problem MDM Narrative Medical decision making narrative: 18-year-old otherwise healthy female presenting for irritation in her left eye. She has worn a contact lens in her left eye for several months and is a daily lens. She does not were contacts in her right eye. She otherwise well- appearing not any acute distress but does have some photophobia. She has some conjunctival injection but spares the limbus. Small corneal abrasion loaded on fluoroscopy exam in the inferior medial portion of the left eye that does not cross the visual axis. She has vision that is poor baseline without any deterioration or worsening from baseline. No drainage, no signs of hypopyon or ulceration. She is afebrile without any headache or nausea or vomiting. Presently considerations are for corneal abrasion, contact lens conjunctivitis, does not appear to be ulcerative or have keratitis. Patient felt improvement after the tetracaine drops and was given ciprofloxacin drops and instructions on how to use them. She was given strict return precautions as well as follow-up instructions with ophthalmology at [facility] given that we do not have ophthalmology at this facility. Patient verbalized the return precautions and follow-up instructions and she was safely discharged home at this time after receiving the eyedrops. Medical Records Attestation: I reviewed the patient's medical records. Discharge Plan Discharge Clinical Impression: Corneal abrasion, left, Contact lens related conjunctivitis Patient Disposition: Home, Self-Care Condition: Stable Instructions: Antibiotic Form, Ciprofloxacin (Into the eye), Corneal Abrasion (DC) Additional Instructions: We will send you home with ciprofloxacin eyedrops to be taken 4 times daily 2 drops each time. Take this for the next 5 days, take Tylenol and ibuprofen for any residual pain. Follow-up with ophthalmology clinic information we have provided. Return with any new or worsening concerns such as vision loss, headache, fever, nausea vomiting. Patient Language: Citizen Of [place] Prescriptions: New ciprofloxacin HCl 0.3 % drops See Rx Instructions .ROUTE .COMPLEX Qty: 5 0RF Rx Instructions: put 1-2 drps in affected eye(s) every 2hr up to 8 times/day x2days; then 4 times/day x5days No Action ondansetron 4 mg tablet,disintegrating 4 mg PO Q6-8H PRN (Reason: nausea and vomiting) Qty: 7 0RF loratadine 10 mg tablet 10 mg PO DAILY Qty: 30 0RF vitamin B6-vitamin E-magnesium Tablet 1 tablet PO DAILY PNV cmb#95-ferrous fumarate-FA [] 28 mg iron- 800 mcg tablet 1 tablet PO DAILY acetaminophen [Tylenol Extra Strength] 500 mg tablet 1,000 mg PO Q8H PRN (Reason: pain) Qty: 20 0RF oxycodone-acetaminophen 5-325 mg tablet 1 tablet PO Q4H PRN (Reason: pain) Qty: 25 0RF Follow-up/Referrals: [facility] [Other] - 2 Days (Corneal abrasion, contact lens use) UNKNOWN,DOCTOR [Primary Care Provider] - Time of Disposition: 21:13
[2024-07-07] MEDS: CIPROFLOXACIN HCL 0.3% OP SOLN 2.5 ML BTL 2 DROP LEFT EYE (21:38)
== END 2024-07-07 21:50 | disposition home or self-care (01) ==
PROVIDERS: Emergency Provider Student in an Organized Health Care Education/Training Program
DX: H18.822 Corneal disorder due to contact lens, left eye (principal); H10.89 Other conjunctivitis
CPT/HCPCS: 99283

== ENCOUNTER 2024-07-13 07:49 | Emergency (ER) | payer OTHER, SELFPAY ==
[2024-07-13 07:50] VITALS: TEMP 36.2
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
--- OUTSIDE RECORDS SUMMARY | 2024-07-13 07:51 | XMS_ITS | Clinical Summary ---
Author Organization [facility] Address [address] [place] [address] Care Team Providers Care General Studies Program Chair Name Role Phone None, Provider MD Primary [...] 06/03/2020 Immunizations Name Administration Dates Next Due [id number] (Pediarix) 11/29/2006 DTaP-IPV (Kinrix) 12/24/2008 DTaP-IPV/Hib (Pentacel) [...] on file Legal Sex Female 9:19 AM MANPOWER DEVELOPMENT SPECIALIST Gender Identity Not on file Sexual Orientation Not on file Last Filed Vital Signs Vital Sign Reading Time Taken Comments Blood Pressure 118/74 03/28/2023 10:06 AM MANPOWER DEVELOPMENT SPECIALIST Pulse 90 03/28/2023 10:06 AM MANPOWER DEVELOPMENT SPECIALIST Temperature 36.4 C (97.6 F) 03/28/2023 10:06 AM MANPOWER DEVELOPMENT SPECIALIST Respiratory Rate 16 03/28/2023 10:0 6 AM MANPOWER DEVELOPMENT SPECIALIST Oxygen Saturation 100% 03/28/2023 10: 06 AM MANPOWER DEVELOPMENT SPECIALIST Inhaled Oxygen Concentration - - Weight 67.3 kg (148 lb 5.9 oz) 03/28/20 23 10:06 AM MANPOWER DEVELOPMENT SPECIALIST Height 157.5 cm (5' 2 ) 03/28/2023 10:0 6 AM MANPOWER DEVELOPMENT SPECIALIST Body Mass Index 27.14 03/28/2023 10:06 AM MANPOWER DEVELOPMENT SPECIALIST Body Mass Index Percentile 88.91% 03/28 10:06 AM MANPOWER DEVELOPMENT SPECIALIST Growth Chart: [facility] (Girls, 2- 20 Years) Plan of Treatment Health Maintenance Due Date Last Done Comments PHQ-2 (Phys[facility] [place]) 2016 Meningococcal B Vaccine (1 of 2 - Standard) 2020 Annual Physical 06/02/2021 06/02/2020 Hepatitis C 2022 COVID-19 Vaccine ( season) 2023 Influenza Adult (#1) 2024 01/21/2020, 02/18/2019, 01/31/2018, Additional history exists PHQ-2 (Phys[facility] [place]) 04/30/2024 DTaP, Tdap and Td Vaccines (6 [...] patient's age to complete this topic Insurance [facility] Care Teams General Studies Program Chair Relationship Specialty Start Date End Date None, Provider, MD PCP - General UNKNOWN PHYSICIAN SPECIALTY 03/28/23
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
[2024-07-13 08:02] VITALS: BP 137/84; PULSE 98; RESP 18; TEMP 36.3; O2SAT 98
--- NOTE | 2024-07-13 08:04 | PC.NURSE ---
Pt reports seen at 3 days ago given RX for antibiotic ear drop. Pt states pain has increased with swelling to right outer ear that extends to right jaw. Denies drainage from right ear
--- OUTSIDE RECORDS SUMMARY | 2024-07-13 08:25 | XMS_ITS | Referral Summary ---
Author Organization [facility] Address [address] [place] [address] Care Team Providers Care Laboratory Helper Name Role Phone Unknown, Notinfile Primary Care [...] on file Legal Sex Female 8:54 AM INSTALLMENT AGENT Gender Identity Not on file Sexual Orientation Not on file Last Filed Vital Signs Vital Sign Reading Time Taken Comments Blood Pressure 112/65 04/26/2023 10:16 AM INSTALLMENT AGENT Pulse 90 04/26/2023 10:16 AM INSTALLMENT AGENT Temperature 36.7 C (98.1 F) 04/26/2023 9:21 AM INSTALLMENT AGENT Respiratory Rate 18 04/26/2023 10:16 AM INSTALLMENT AGENT Oxygen Saturation 100% 04/26/2023 10:16 AM INSTALLMENT AGENT Inhaled Oxygen Concentration - - Weight 63.5 kg (140 lb) 04/26/2023 9:21 AM INSTALLMENT AGENT Height 157.5 cm (5' 2 ) 04/26/2023 9:21 AM INSTALLMENT AGENT Body Mass Index 25.61 04/26/2023 9:21 AM INSTALLMENT AGENT Body Mass Index Percentile 83.49% 04/26/2023 9:2 1 AM INSTALLMENT AGENT Growth Chart: CDC (Girls, 2- 20 Years) Plan of Treatment Not on file Insurance [employer] ACCESS CHOICE [employer] CHO[employer] Care Teams Laboratory Helper Relationship Specialty Start Date End Date Unknown, Notinfile PCP - General 04/26/23
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
--- OUTSIDE RECORDS SUMMARY | 2024-07-13 08:25 | XMS_ITS | Clinical Summary ---
Author Organization [facility] al Address [address] [place] [address] Care Team Providers Care Nail Tech Name Role Phone Unknown, Notinfile Primary Care [...] on file Legal Sex Female 8:54 AM WRONG ADDRESS CLERK Gender Identity Not on file Sexual Orientation Not on file Obstetrics History Growth Chart Information Age Height Weight Yidzey-ykm-jwun th Percentile BMI Percentile Head Circum Head Circum Percentile Date 17 years 157.5 cm (5' 2 ) 63.5 kg (140 lb) 83.49%* 2022 * [facility] (Girls, 2-20 Years) Last Filed Vital Signs Vital Sign Reading Time Taken Comments Blood Pressure 112/65 04/26/2023 10:16 AM WRONG ADDRESS CLERK Pulse 90 04/26/2023 10:16 AM WRONG ADDRESS CLERK Temperature 36.7 C (98.1 F) 04/26/2023 9:21 AM WRONG ADDRESS CLERK Respiratory Rate 18 04/26/2023 10:16 AM WRONG ADDRESS CLERK Oxygen Saturation 100% 04/26/2023 10:16 AM WRONG ADDRESS CLERK Inhaled Oxygen Concentration - - Weight 63.5 kg (140 lb) 04/26/2023 9:21 AM WRONG ADDRESS CLERK Height 157.5 cm (5' 2 ) 04/26/2023 9:21 AM WRONG ADDRESS CLERK Body Mass Index 25.61 04/26/2023 9:21 AM WRONG ADDRESS CLERK Body Mass Index Percentile 83.49% 04/26/2023 9:2 1 AM WRONG ADDRESS CLERK Growth Chart: [facility] (Girls, 2- 20 Years) Plan [...] 03/03/2016 Meningococcal Vaccine Completed 05/09/2022, 016 Insurance [id number] CHO[employer] [facility] ACCESS CHOICE Member Subscriber Plan / Payer (Ef fective 2022-Present) Name:Danielle Doty Relation to Subscriber:Child Name:JUAN CARLOS DOTY Date of :1980 Address: [address] [place] [id number] Payer ID:[id number] (NAIC) Type: [employer] Address: [facility] [id number] [place] [id number] Care Teams Nail Tech Relationship Specialty Start Date End Date Unknown, Notinfile PCP - General 04/26/23
--- OUTSIDE RECORDS SUMMARY | 2024-07-13 08:25 | XMS_ITS | Clinical Summary ---
Author Organization [facility] Address [address] [place] [address] Care Team Providers Care Miter Sawyer Name Role Phone Ryann Myles MD Primary Care Provider [phone] Source Comments [facility],non-owned Affiliates and Associated Physician Practices is amultiple site organization consisting of ambulatory clinics and hospital sitesin [place], [place], [place] and [place]. This disclosure is being madepursuant to the Care Everywhere program and may not contain all information available regarding this patient. Last updated 18.[facility] Allergies No known active allergies Medications [...] Office Visit [facility] - Ophthalmology [address] [place] [phone] Acute anterior uveitis (Primary Dx) 07/09/2024 Travel 07/08/2024 Telephone [facility] Ophthalmology [address] [place] [phone] Vini Hanna MD Nurse Only from Last [...] Comments Blood Pressure 112/64 07/07/2022 9:30 PM CONTINUOUS DRYOUT OPERATOR HELPER Pulse 86 07/07/2022 9:30 PM CONTINUOUS DRYOUT OPERATOR HELPER Temperature 36.7 C (98.1 F) 07/07/2022 9:30 PM CONTINUOUS DRYOUT OPERATOR HELPER Respiratory Rate 20 07/07/2022 9:30 PM CONTINUOUS DRYOUT OPERATOR HELPER Oxygen Saturation 100% 07/07/2022 9:30 PM CONTINUOUS DRYOUT OPERATOR HELPER Inhaled Oxygen Concentration - - Weight 67.9 kg (149 lb 11.1 oz) 07/07/2022 9:30 PM CONTINUOUS DRYOUT OPERATOR HELPER Height 156 cm (5' 1.42 ) 07/07/2022 9:30 PM CONTINUOUS DRYOUT OPERATOR HELPER Body Mass Index 27.9 07/07/2022 9:30 PM CONTINUOUS DRYOUT OPERATOR HELPER Body Mass Index Percentile 91.57% 07/07/2022 9:3 0 PM CONTINUOUS DRYOUT OPERATOR HELPER Growth Chart: [facility] (Girls, 2- 20 Years) Plan of Treatment Upcoming Encounters Date Type Department Care Team (Late st Contact Info) Description 07/15/2024 10:00 AM CDT Office Visit [facility] - Ophthalmology [address] [place] [phone] 10/01/2024 10:00 AM CDT Office Visit [facility] Ophthalmology [address] [place] [phone] Health Maintenance Due Date Last Done Comments [...] Probe Negative Negative 09/19/2013 12:08 PM CDT [facility] GC Amplified Probe Negative Negative 09/19/2013 12:08 PM CDT [facility] Urine URINE / Unknown 09/18/2013 9 :28 AM CDT 09/18/2013 9:52 AM CDT Narrative [facility] - 09/19/2013 12:08 PM CDT This test was developed and its performance characteristics determined by the [facility], [facility]. Female urine specimens tested by the [facility] [place] have not been cleared or approved by the FDA. The laboratory is regulated under CLIA as qualified to perform high-complexity testing. This test is used for clinical purposes. It should not be regarded as investigational or for research. Results based on detection/no detection of ribosomal RNA by amplified method. Neda Adam MD LAB - MICROBIOLOGY O RDERABLES [facility] [address] [place] [address], [facility] from Last 3 Months or Most Recently Relevant to Health Maintenance Care Teams Miter Sawyer Relationship Specialty Start Date End Date Ryann Myles MD [address] [place] [phone] PCP - General Pediatrics 06/28/22
--- OUTSIDE RECORDS SUMMARY | 2024-07-13 08:25 | XMS_ITS | Clinical Summary ---
Author Organization [facility] Address [address] [place] [address] Care Team Providers Care Heading Maker Name Role Phone None, Provider MD Primary [...] 06/03/2020 Immunizations Name Administration Dates Next Due [id number] (Pediarix) 11/29/2006 DTaP-IPV (Kinrix) 12/24/2008 DTaP-IPV/Hib (Pentacel) [...] on file Legal Sex Female 9:19 AM TRUSS PULLER HELPER Gender Identity Not on file Sexual Orientation Not on file Last Filed Vital Signs Vital Sign Reading Time Taken Comments Blood Pressure 118/74 03/28/2023 10:06 AM TRUSS PULLER HELPER Pulse 90 03/28/2023 10:06 AM TRUSS PULLER HELPER Temperature 36.4 C (97.6 F) 03/28/2023 10:06 AM TRUSS PULLER HELPER Respiratory Rate 16 03/28/2023 10:0 6 AM TRUSS PULLER HELPER Oxygen Saturation 100% 03/28/2023 10: 06 AM TRUSS PULLER HELPER Inhaled Oxygen Concentration - - Weight 67.3 kg (148 lb 5.9 oz) 03/28/20 23 10:06 AM TRUSS PULLER HELPER Height 157.5 cm (5' 2 ) 03/28/2023 10:0 6 AM TRUSS PULLER HELPER Body Mass Index 27.14 03/28/2023 10:06 AM TRUSS PULLER HELPER Body Mass Index Percentile 88.91% 03/28 10:06 AM TRUSS PULLER HELPER Growth Chart: [facility] (Girls, 2- 20 Years) Plan of Treatment Health Maintenance Due Date Last Done Comments PHQ-2 (Physician [place]) 2016 Meningococcal B Vaccine (1 of 2 - Standard) 2020 Annual Physical 06/02/2021 06/02/2020 Hepatitis C 2022 COVID-19 Vaccine ( season) 2023 Influenza Adult (#1) 2024 01/21/2020, 02/18/2019, 01/31/2018, Additional history exists PHQ-2 (Physician [place]) 04/30/2024 DTaP, Tdap and Td Vaccines (6 [...] patient's age to complete this topic Insurance [facility] Care Teams Heading Maker Relationship Specialty Start Date End Date None, Provider, MD PCP - General UNKNOWN PHYSICIAN SPECIALTY 03/28/23
--- OUTSIDE RECORDS SUMMARY | 2024-07-13 08:25 | XMS_ITS | Patient Health Summary ---
Author Organization [facility] Address [address] [place] [address] Care Team Providers Care Shop Welder Name Role Phone Ryann Myles MD Primary Care Provider [phone] Note from [facility],non-owned Affiliates and Associated Physician Practices is amultiple site organization consisting of ambulatory clinics and hospital sitesin [place], [place], [place] and [place]. This disclosure is being madepursuant to the Care Everywhere program and may not contain all information available regarding this patient. Last updated 18.[facility] Allergies No known active allergies Medications * [...] Comments Blood Pressure 112/64 07/07/2022 9:30 PM INFORMATION SERVICES ASSISTANT Pulse 86 07/07/2022 9:30 PM INFORMATION SERVICES ASSISTANT Temperature 36.7 C (98.1 F) 07/07/2022 9:30 PM INFORMATION SERVICES ASSISTANT Respiratory Rate 20 07/07/2022 9:30 PM INFORMATION SERVICES ASSISTANT Oxygen Saturation 100% 07/07/2022 9:30 PM INFORMATION SERVICES ASSISTANT Inhaled Oxygen Concentration - - Weight 67.9 kg (149 lb 11.1 oz) 07/07/2022 9:30 PM INFORMATION SERVICES ASSISTANT Height 156 cm (5' 1.42 ) 07/07/2022 9:30 PM INFORMATION SERVICES ASSISTANT Body Mass Index 27.9 07/07/2022 9:30 PM INFORMATION SERVICES ASSISTANT Body Mass Index Percentile 91.57% 07/07/2022 9:3 0 PM INFORMATION SERVICES ASSISTANT Growth Chart: [facility] (Girls, 2- 20 Years) Procedures * SARS-COV-2 [...] Not detected Not detected 09/08[facility]19 3:01 PM [facility] Influenza A PCR Detected(A) Not detected 09/07/2021 3:01 PM T [facility] Comment:Result not called pe r laboratory protocol Influenza B PCR Not detected Not detected 09/07/2021 3:01 PM CDT [facility] RSV PCR Not detected Not detected 09/07/2021 3:01 PM CDT [facility] Microbiology SPECIMEN FROM NASOPHARYNGEAL STRUCTURE / Unknown Collection / Unknown 09/07/2021 2:15 PM CDT 09/07/2021 2:21 PM CDT Narrative [facility] - 09/07/2021 3:01 PM CDT Droplet Precautions [...] Romo MD LAB - MICROBIOLOGY Ladi TIAN [address] [address], [facility] [phone] * STREP A SCREEN DIRECT W RFLX STREP A CULTURE (09/07/2021 1:04 PM CDT) Only the most recent of4 resultswithin the time period is included. [facility] Rapid Strep A Screen Negative Negative 09/07/2021 1:29 PM CDT [facility] Microbiology ENTIRE THROAT (SURFACE REGION OF NECK) / Unknown Collection / Unknown 09/07/2021 1:04 PM CDT 09/07/2021 1:12 PM CDT Narrative [facility] - 09/07/2021 1:29 PM CDT Rapid test for Group A Beta Streptococcus is NEGATIVE. A Negative, Direct Test for Group A Streptococcus will be followed with a confirmatory Throat Culture when 2 swabs have been submitted. Katina Romo MD LAB - MICROBIOLOGY Ladi TIAN Performing Organization Address City/[facility]/ZIP Co de Phone Number [address] [place] [address], [facility] [phone] * CULTURE STREP GROUP A (09/07/2021 1:04 PM CDT) Only the most recent of3 resultswithin the time period is included. Culture Negative for beta-hemolytic Streptococcus Group A CESILIA 09/10/2021 11:57 AM CDT [facility] MICROBIOLOGY Microbiology ENTIRE THROAT (SURFACE REGION OF NECK) / Unknown Collection / Unknown 09/07/2021 1:04 PM CDT 09/07/2021 1:12 PM CDT Katina Romo MD LAB - MICROBIOLOGY O RDERABLES [facility] MICROBIOLOGY [address] [place] [address], [facility] [phone] * HCG URINE QUALITATIVE - POCT (IP) INTERFACED (07/07/2021 11:44 PM INFORMATION SERVICES ASSISTANT) HCG Qual Urine Negative Negative 07/07/2021 11:54 PM INFORMATION SERVICES ASSISTANT [facility] Urine URINE / Unknown 07/07/2021 1 1:44 PM INFORMATION SERVICES ASSISTANT 07/07/2021 11:54 PM INFORMATION SERVICES ASSISTANT Thomas Gayle MD LAB - POINT OF CARE ORDERABLES Performing Organization Address City/[facility]/ZIP Co de Phone Number [facility] [place] [address] * (ABNORMAL) URINALYSIS REFLEX MICROSCOPIC REFLEX CULTURE (07/07/2021 11:39 PM INFORMATION SERVICES ASSISTANT) Color UA Straw Straw, Yellow 07/07/2021 11:55 PM INFORMATION SERVICES ASSISTANT [facility] Clarity UA Clear Clear 07/07/2021 11:55 PM INFORMATION SERVICES ASSISTANT [facility] Specific [place] UA 1.006 1.005 - 1.030 07/07/2021 11:55 PM [facility] pH UA 7.0 5.0 - 8.0 pH 07/07/2021 11:55 PM INFORMATION SERVICES ASSISTANT [facility] Protein UA Negative Negative 07/07/2021 11:55 PM [facility] Glucose UA Negative Negative 07/07/2021 11:55 PM [facility] Ketone UA 1+(A) Negative 07/07/2021 11:55 PM [facility] Bilirubin UA Negative Negative 07/07/2021 11:55 PM [facility] Blood UA Negative Negative 07/07/2021 11:55 PM [facility] Nitrite UA Negative Negative 07/07/2021 11:55 PM [facility] Leukocyte Esterase Negative Negative 07/07/2021 11:55 PM [facility] Urobilinogen UA Negative Negative mg/dL 07/07/2021 11:55 PM [facility] Comment UA Microscopic not indicated. 07/07/2021 11:55 PM [facility] Urine URINE SPECIMEN OBTAINED BY CLEAN CATCH PROCEDURE / Unknown Collection / Unknown 07/07/2021 11:39 PM INFORMATION SERVICES ASSISTANT 07/07/2021 11:46 PM INFORMATION SERVICES ASSISTANT Narrative [facility] - 07/07/2021 11:55 PM INFORMATION SERVICES ASSISTANT Thomas Gayle MD LAB - URINALYSIS ORD ERABLES [facility] [address] [place] [phone], [facility] [phone] * TISSUE TRANSGLUTAMINASE AB IGA (07/07/2021 11:38 PM INFORMATION SERVICES ASSISTANT) Tissue Transglutaminase (tTG) Ab, IgA <2 0 - 3 U/mL 07/10/2021 8:14 AM CDT [facility] ([facility]) Comment: INTERPRETIVE INFORMATION: Tissue Transglutaminase (tTG) Antibody, [...] positive predictive value for disease. Performed By: [employer] [address] [place] [address] Manager Coding: Irma Brizuela MD Blood BLOOD SPECIMEN / Unknown Venipuncture / Unknown 07/07/2021 11:38 PM INFORMATION SERVICES ASSISTANT 07/07/2021 11:46 PM INFORMATION SERVICES ASSISTANT Thomas Galye MD LAB - SEROLOGY ORDER PANCHO Performing Organization Address [facility] Co de Phone Number [employer] ([facility]) [address] [place] [address] * GLIADIN ANTIBODY IGA/IGG PANEL (07/07/2021 11:38 PM INFORMATION SERVICES ASSISTANT) Deamidated Gliadin Peptide (DGP) Ab, IgA 3 0 - 19 Units 07/10/2021 4:37 PM CDT [facility] [employer] ([facility]) Comment: INTERPRETIVE INFORMATION: Deamidated Gliadin Peptide (DGP) Ab, IgA 19 Units or less: ........... Negative 20-30 Units: ................ Weak Positive 31 Units or greater: ........ Positive Deamidated Gliadin Peptide (DGP) Ab, IgG 2 0 - 19 Units 07/10/2021 4:37 PM CDT [employer] ([facility]) Comment: INTERPRETIVE INFORMATION: Deamidated Gliadin Peptide (DGP) Ab, IgG 19 Units or less: ........... Negative 20-30 Units: ................ Weak Positive 31 Units or greater: ........ Positive Performed By: [employer] [address] [place] [address] Manager Coding: Irma Brizuela MD Blood BLOOD SPECIMEN / Unknown Venipuncture / Unknown 07/07/2021 11:38 PM INFORMATION SERVICES ASSISTANT 07/07/2021 11:46 PM INFORMATION SERVICES ASSISTANT Thomas Gayle MD LAB - SEROLOGY ORDER PANCHO Performing Organization Address City/[facility]/ZIP Co de Phone Number [facility] [employer] ([facility]) [address] * C-REACTIVE PROTEIN (07/07/2021 11:38 PM INFORMATION SERVICES ASSISTANT) Only the most recent of2 resultswithin the time period is included. C-Reactive Protein <0.5 <=0.5 mg/dL 07/08/2021 12:23 AM [facility] Blood BLOOD SPECIMEN / Unknown Venipuncture / Unknown 07/07/2021 11:38 PM INFORMATION SERVICES ASSISTANT 07/07/2021 11:46 PM INFORMATION SERVICES ASSISTANT Thomas Gayle MD LAB - CHEMISTRY ORDE RABLES [address] [address], [facility] [phone] * ERYTHROCYTE SEDIMENTATION RATE (07/07/2021 11:38 PM INFORMATION SERVICES ASSISTANT) Only the most recent of2 resultswithin the time period is included. Pathologist [facility] Erythrocyte Sedimentation Rate Westergren 15 0 - 20 MM/HR 07/08/2021 12:52 AM [facility] Blood BLOOD SPECIMEN / Unknown Venipuncture / Unknown 07/07/2021 11:38 PM INFORMATION SERVICES ASSISTANT 07/07/2021 11:49 PM INFORMATION SERVICES ASSISTANT Thomas Gayle MD LAB - HEMATOLOGY ORD ERABLES Performing Organization Address City/[facility]/ZIP Co de Phone Number [address] [address], [facility] [phone] * (ABNORMAL) CBC W AUTO DIFFERENTIAL (07/07/2021 11:38 PM INFORMATION SERVICES ASSISTANT) Only the most recent of2 resultswithin the time period is included. WBC 9.8 4.5 - 14.5 10 3/uL 07/08/2021 12:07 AM [facility] RBC 4.47 4.10 - 5.10 10 6/uL 07/08/2021 12:07 AM [facility] Hemoglobin 12.9 12.0 - 16.0 g/dL 07/08/2021 12:07 AM [facility] Hematocrit 38.2 36.0 - 47.0 % 07/08/2021 12:07 AM [facility] MCV 85.5 78.0 - 98.0 fL 07/08/2021 12:07 AM [facility] MCH 28.9 25.0 - 35.0 pg 07/08/2021 12:07 AM [facility] MCHC 33.8 31.0 - 37.0 g/dL 07/08/2021 12:07 AM [facility] Platelet Count 202 100 - 400 10 3/uL 07/08/2021 12:07 AM [facility] RDW-SD 37.7 36.0 - 50.0 fL 07/08/2021 12:07 AM [facility] RDW-CV 12.1 11.5 - 14.0 % 07/08/2021 12:07 AM [facility] MPV 11.6(H) 6.0 - 9.5 fL 07/08/2021 12:07 AM [facility] nRBC Absolute 0.00 0 10 3/uL 07/08/2021 12:07 AM [facility] nRBC Auto 0.0 0 /100 WBC 07/08/2021 12:07 AM [facility] Neutrophils % 80.3(H) 24.0 - 66.0 % 07/08/2021 12:07 AM [facility] Lymphocytes % 14.2(L) 22.0 - 61.0 % 07/08/2021 12:07 AM [facility] Monocytes % 4.4 3.0 - 15.0 % 07/08/2021 12:07 AM [facility] Eosinophils % 0.5 0.0 - 10.0 % 07/08/2021 12:07 AM [facility] Basophil % 0.2 0.0 - 100.0 % 07/08/2021 12:07 AM [facility] Neutrophils Absolute 7.9 1.1 - 9.6 10 3/uL 07/08/2021 12:07 AM [facility] Lymphocyte Absolute 1.4 1.0 - 8.9 10 3/uL 07/08/2021 12:07 AM [facility] Monocytes Absolute 0.43 0.14 - 2.18 10 3/uL 07/08/2021 12:07 AM [facility] Eosinophils Absolute 0.05 0.00 - 1.45 10 3/uL 07/08/2021 12:07 AM [facility] Basophils Absolute 0.02 0.00 - 0.29 10 3/uL 07/08/2021 12:07 AM [facility] Immature Granulocytes % 0.4 0.0 - 1.0 % 07/08/2021 12:07 AM [facility] Immature Granulocytes Absolute 0.04 07/08/2021 12:07 AM [facility] Blood BLOOD SPECIMEN / Unknown Venipuncture / Unknown 07/07/2021 11:38 PM INFORMATION SERVICES ASSISTANT 07/07/2021 11:49 PM INFORMATION SERVICES ASSISTANT Thomas Gayle MD LAB - HEMATOLOGY ORD ERABLES [facility] [address] [place] [address], [facility] [phone] * (ABNORMAL) COMPREHENSIVE METABOLIC PANEL (07/07/2021 11:38 PM INFORMATION SERVICES ASSISTANT) Only the most recent of2 resultswithin the time period is included. BUN 8 5 - 19 mg/dL 07/08/2021 12:16 AM [facility] Creatinine 0.53 0.48 - 0.84 mg/dL 07/08/2021 12:16 AM [facility] Sodium 137 136 - 145 mmol/L 07/08/2021 12:16 AM [facility] Potassium 3.9 3.5 - 5.1 mmol/L 07/08/2021 12:16 AM [facility] Chloride 105 98 - 107 mmol/L 07/08/2021 12:16 AM [facility] CO2 21 20 - 28 mmol/L 07/08/2021 12:16 AM [facility] Glucose 92 70 - 115 mg/dL 07/08/2021 12:16 AM [facility] Calcium 9.4 8.4 - 10.2 mg/dL 07/08/2021 12:16 AM [facility] Protein Total 6.9 6.0 - 8.3 g/dL 07/08/2021 12:16 AM [facility] Albumin 3.8 3.4 - 5.0 g/dL 07/08/2021 12:16 AM [facility] Bilirubin Total 0.8 0.3 - 1.2 mg/dL 07/08/2021 12:16 AM [facility] Alkaline Phosphatase 81(L) 100 - 390 U/L 07/08/2021 12:16 AM [facility] ALT 18 5 - 55 U/L 07/08/2021 12:16 AM [facility] AST 18 3 - 35 U/L 07/08/2021 12:16 AM [facility] Anion Gap 15 8 - 18 07/08/2021 12:16 AM [facility] BUN/Creatinine Ratio 15 7 - 23 07/08/2021 12:16 AM [facility] Osmolality Calculated 282 270 - 300 mOsm/kg 07/08/2021 12:16 AM [facility] Blood BLOOD SPECIMEN / Unknown Venipuncture / Unknown 07/07/2021 11:38 PM INFORMATION SERVICES ASSISTANT 07/07/2021 11:49 PM INFORMATION SERVICES ASSISTANT Thomas Gayle MD LAB - CHEMISTRY DANIKA DUNCAN [address] [address], [facility] [phone] * IGA BLOOD (07/07/2021 11:38 PM INFORMATION SERVICES ASSISTANT) IgA 192 60 - 337 mg/dL 07/08/2021 12:23 AM [facility] Blood BLOOD SPECIMEN / Unknown Venipuncture / Unknown 07/07/2021 11:38 PM INFORMATION SERVICES ASSISTANT 07/07/2021 11:46 PM INFORMATION SERVICES ASSISTANT Thomas Gayle MD LAB - CHEMISTRY DANIKA DUNCAN [facility] [address] [place] [phone], [place] [phone] * HCG URINE QUAL POCT NOTIFICATION (07/07/2021 10:38 PM INFORMATION SERVICES ASSISTANT) Comment Notification Label Only - See Separate Report 07/08/2021 12:31 AM INFORMATION SERVICES ASSISTANT [facility] Urine URINE / Unknown 07/07/2021 1 0:38 PM INFORMATION SERVICES ASSISTANT 07/07/2021 11:11 PM INFORMATION SERVICES ASSISTANT Thomas Gayle MD LAB - URINALYSIS ORD ERABLES Performing Organization Address [facility]/ZIP Co de Phone Number [facility] [address] [place] [phone] * OCCULT BLOOD FECES (11/06/2014 8:05 PM CDT) Occult Blood Negative Negative 11/06/2014 8:22 PM T [facility] Stool STOOL SPECIMEN / Unknown 11/06/2014 8:05 PM CDT 11/06/2014 8:10 PM CDT Josué Ervin MD LAB - BODY FLUID ORD ERABLES Performing Organization Address [facility] de Phone Number [facility] [address] [place] [phone] * (ABNORMAL) DIFFERENTIAL MANUAL (11/06/2014 7:14 PM CDT) Pathologist [facility] [place] WBC Auto 9.3 x10^9/L 11/06/2014 8:14 PM [facility] WBC Corrected 4.5 - 14.5 x10^9/L 11/06/2014 8:14 PM [facility] nRBC /100 WBC 11/06/2014 8:14 PM [facility] Neutrophil % Manual 49 24 - 66 % 11/06/2014 8:14 PM [facility] Lymphocytes % Manual 42 22 - 61 % 11/06/2014 8:14 PM [facility] Monocytes % Manual 6 3 - 15 % 11/06/2014 8:14 PM [facility] Eosinophils % Manual 2 0 - 10 % 11/06/2014 8:14 PM [facility] Atypical Lymphocyte % Manual 1(H) <=0 % 11/06/2014 8:14 PM [facility] Cells Counted 100 # cells 11/06/2014 8:14 PM [facility] Platelet Estimation Adequate platelets Normal, Adequate platelets 11/06/2014 8:14 PM CDT [facility] RBC Morphology Normal 11/06/2014 8:14 PM CDT [facility] WBC Morph Normal 11/06/2014 8:14 PM CDT [facility] Large Platelets Occasional(A ) None 11/06/2014 8:14 PM CDT [facility] Blood BLOOD SPECIMEN / Unknown 11/06/2014 7:14 PM CDT 11/06/2014 7:37 PM CDT Josué Ervin MD LAB - HEMATOLOGY ORD ERABLES [facility] [address] [place] [address] * XR ABD OBSTR SERIES (11/06/2014 7:03 PM CDT) Anatomical Region Laterality Modality Abdomen Radiographic Keri ging 11/07/2014 9:27 AM CDT Impressions 11/07/2014 11:37 AM CDT Normal abdominal radiograph. Dictated by Simeon Hernandez MD (interventional radiology rn). Luz Garcia, have personally reviewed the images [...] abdominal radiograph. Dictated by Simeon Hernandez MD (interventional radiology rn). Luz Garcia, have personally reviewed the images and I agree with this report. Josué Ervin MD DIAGNOSTIC IMAGING O RDERABLES * XR ABDOMEN 1 VW (03/31/2014 11:28 AM INFORMATION SERVICES ASSISTANT) Anatomical Region Laterality Modality Abdomen Radiographic Keri ging 03/31/2014 11:3 0 AM INFORMATION SERVICES ASSISTANT Impressions 03/31/2014 11:33 AM INFORMATION SERVICES ASSISTANT Nonobstructive bowel gas pattern. Narrative 03/31/2014 11:33 AM INFORMATION SERVICES ASSISTANT EXAMINATION: Abdomen one view HISTORY: 8-year-old with [...] Probe Negative Negative 09/19/2013 12:08 PM CDT [facility] GC Amplified Probe Negative Negative 09/19/2013 12:08 PM CDT [facility] Urine URINE / Unknown 09/18/2013 9 :28 AM CDT 09/18/2013 9:52 AM CDT Narrative [facility] - 09/19/2013 12:08 PM CDT This test was developed and its performance characteristics determined by the [facility], [facility]. Female urine specimens tested by the [facility] have not been cleared or approved by the FDA. The laboratory is regulated under CLIA as qualified to perform high-complexity testing. This test is used for clinical purposes. It should not be regarded as investigational or for research. Results based on detection/no detection of ribosomal RNA by amplified method. Neda Adam MD LAB - MICROBIOLOGY O RDERABLES [facility] [address] [place], [place] [address], [facility] Care Teams Shop Welder Relationship Specialty Start Date End Date Ryann Myles MD [address] [place] [phone] PCP - General Pediatrics 06/28/22
--- NOTE | 2024-07-13 08:30 | ED.GENADULT ---
HPI - General Adult General Chief complaint: Ear Stated complaint: r ear pain Time Seen by Provider: 07/13/24 08:09 History of Present Illness HPI narrative: 18-year-old female present to the emergency department for evaluation for right ear pain. Patient did have follow-up with urgent care on was started on antibiotic drops. Patient states that symptoms have continued to worsen. Related Data Home Medications ?Medication ?Instructions ?Recorded ?Confirmed ?Last Taken ?Type vit no.95-ferrous 1 tablet PO DAILY 06/27/23 01/25/24 01/22/24 09:00 History fumarate 28 mg-folic acid 800 mcg tablet () vitamin B6-vitamin E-magnesium 1 tablet PO DAILY 06/27/23 01/25/24 01/19/24 09:00 History tablet Allergies Allergy/AdvReac Type Severity Reaction Status Date / Time No Known Allergies Allergy Verified 07/13/24 07:50 Review of Systems Review of Systems: All systems reviewed & are unremarkable except as noted in HPI and below PMFSH Past Medical History Medical History Healthy female adult Social History Social History Smoking status: Never smoker Substance use: never Do You Feel Safe in your Home?: Yes Lack of Transportation: No Lack of Food: Never True Current Housing: I Have Housing Concerned About Future Housing: No Difficulty Paying Gas/Electric Bills: No Difficulty Paying for Meds: No Currently Unemployed: No Education: High School Diploma/GED Difficulty w/ Childcare or Family Care: No Spiritual care concerns: No Exam Narrative: APPEARANCE: Well appearing, no pain, no distress, well-nourished. HEAD: normocephalic, atraumatic. EYES: PERRLA/EOMI, conjunctivae clear. NOSE: Normal no drainage EARS: otitis media with exudate THROAT: Pharynx clear, no exudate. NECK: Supple. No adenopathy, no masses. RESPIRATORY: Airway patent, respirations nonlabored. Clear to auscultation bilaterally, no rales, rhonchi, wheezing. CARDIOVASCULAR: Regular rate and rhythm without murmurs rubs or gallops. ABDOMINAL: Soft, nontender, nondistended, normal bowel sounds MUSCULOSKELETAL: Moves all extremities. Strength/ROM intact, No edema, No calf tenderness. NEURO: Alert. Cranial nerves II through XII intact. Good gait. Good coordination SKIN: Warm, dry. Normal Color Course Vital Signs Vital signs: Vital Signs Temperature 97.2 F L 07/13/24 07:50 Temperature 97.4 F L 07/13/24 08:02 Pulse Rate 98 07/13/24 08:02 Respiratory Rate 18 07/13/24 08:02 Blood Pressure 137/84 07/13/24 08:02 Pulse Oximetry 98 07/13/24 08:02 Medical Decision Making MDM Narrative Medical decision making narrative: 18-year-old female presents emergency department for evaluation for right ear pain. Patient was started on Augmentin for suspected otitis media. Patient was encouraged close follow-up with primary care physician. No concern for mastoiditis by exam. Vital Signs Vital Signs: Vital Signs Temperature 97.2 F L 07/13/24 07:50 Temperature 97.4 F L 07/13/24 08:02 Pulse Rate 98 07/13/24 08:02 Respiratory Rate 18 07/13/24 08:02 Blood Pressure 137/84 07/13/24 08:02 Pulse Oximetry 98 07/13/24 08:02 Discharge Plan Discharge Clinical Impression: Otitis media Patient Disposition: Home, Self-Care Condition: Stable Instructions: Antibiotic Form, Earache (ED) Additional Instructions: Antibiotic as directed until completed. Ibuprofen as directed for pain control. [place] as needed for additional pain control. Have close follow-up with your primary care physician. Patient Language: Maltese Prescriptions: New hydrocodone-acetaminophen 5-325 mg tablet 1 tablet PO Q12H PRN (Reason: pain) Qty: 14 0RF amoxicillin-pot clavulanate 875-125 mg tablet 1 tablet PO Q12H 7 Days Qty: 14 0RF No Action ondansetron 4 mg tablet,disintegrating 4 mg PO Q6-8H PRN (Reason: nausea and vomiting) Qty: 7 0RF loratadine 10 mg tablet 10 mg PO DAILY Qty: 30 0RF vitamin B6-vitamin E-magnesium Tablet 1 tablet PO DAILY PNV cmb#95-ferrous fumarate-FA [] 28 mg iron- 800 mcg tablet 1 tablet PO DAILY acetaminophen [Tylenol Extra Strength] 500 mg tablet 1,000 mg PO Q8H PRN (Reason: pain) Qty: 20 0RF ciprofloxacin HCl 0.3 % drops See Rx Instructions .ROUTE .COMPLEX Qty: 5 0RF Rx Instructions: put 1-2 drps in affected eye(s) every 2hr up to 8 times/day x2days; then 4 times/day x5days oxycodone-acetaminophen 5-325 mg tablet 1 tablet PO Q4H PRN (Reason: pain) Qty: 25 0RF Follow-up/Referrals: David Brody MD [Primary Care Provider] -
[2024-07-13] MEDS: HYDROcodone/acetaminophen (*CRX) 7.5-325 MG TABLET 1 TAB PO (09:10)
[2024-07-13] MEDS: AMOXICILLIN/CLAVULANATE K 875-125 MG TAB 1 TABLET PO (09:10)
[2024-07-13] MEDS: KETOROLAC 30 MG/ML VIAL (*BKC) IM (09:11)
== END 2024-07-13 09:38 | disposition home or self-care (01) ==
PROVIDERS: Emergency Provider Emergency Medicine; PCP Emergency Medicine
DX: H66.91 Otitis media, unspecified, right ear (principal)
CPT/HCPCS: 96372; 99283; A9270; J1885

== ENCOUNTER 2024-11-24 13:26 | Emergency (ER) | payer OTHER, SELFPAY ==
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
--- OUTSIDE RECORDS SUMMARY | 2024-11-24 13:29 | XMS_ITS | Clinical Summary ---
Author Organization [facility] Address [address] [place] [address] Care Team Providers Care Data Collection Technician Name Role Phone Ryann Myles MD Primary Care Provider [phone] Source Comments [facility],non-owned Affiliates and Associated Physician Practices is amultiple site organization consisting of ambulatory clinics and hospital sitesin [place], [place], [place] and [place]. This disclosure is being madepursuant to the Care Everywhere program and may not contain all information available regarding this patient. Last updated 18.[facility] 800razors Allergies No known active allergies Medications * This document contains information received from the source organization and may not represent a complete record from that organization. * Be aware that medications may not be up to date on this document. Alwaysverify current medications with the patient. hydrocortisone (Hytone) 1 % ointment Apply to affected area 2 times daily as needed 28 g 3 Active etonogestrel (Nexplanon) 68 MG implant 68 (sixty eight) mg by Subdermal route once 4 Active prednisoLONE acetate (Pred Forte) 1 % ophthalmic suspension Instill 1 (one) drop into left eye 4 times daily 5 mL 1 5 Active amoxicillin-cla vulanate (Augmentin) 875-125 MG tablet Take 1 (one) tablet by mouth 2 times daily with morning and evening meal 5 Active neomycin-polymy vannessa-hc (Cortisporin) 3.5-96481-0 otic suspension Instill 4 (four) drops into right ear 4 times daily 5 Active Active Problems Problem Noted Date Diagnosed Date Maternal care for excessive growth, third trimester, not applicable or unspecified 07/09/2024 Overview (07/09/2024): 97% Encounters Date Type Department Care Team Description 10/01/2024 Travel from Last 3 Months Social History Tobacco Use Types Packs/Day Years Used Date Smoking Tobacco: Never Smokeless Tobacco: Never Alcohol Use Standard Drinks/Week Comments No 0 (1 standard drink = 0.6 oz pur e alcohol) Comments No Sex and Gender Information Value Date Recorded Sex Assigned at Not on file Legal Sex Female 5:44 AM TELEPHONE ORDER SUPERVISOR Gender Identity Not on file Sexual Orientation Not on file Last Filed Vital Signs Vital Sign Reading Time Taken Comments Blood Pressure 112/64 07/07/2022 9:30 PM TELEPHONE ORDER SUPERVISOR Pulse 86 07/07/2022 9:30 PM TELEPHONE ORDER SUPERVISOR Temperature 36.7 C (98.1 F) 07/07/2022 9:30 PM TELEPHONE ORDER SUPERVISOR Respiratory Rate 20 07/07/2022 9:30 PM TELEPHONE ORDER SUPERVISOR Oxygen Saturation 100% 07/07/2022 9:30 PM TELEPHONE ORDER SUPERVISOR Inhaled Oxygen Concentration - - Weight 67.9 kg (149 lb 11.1 oz) 07/07/2022 9:30 PM TELEPHONE ORDER SUPERVISOR Height 156 cm (5' 1.42) 07/07/2022 9:30 PM TELEPHONE ORDER SUPERVISOR Body Mass Index 27.9 07/07/2022 9:30 PM TELEPHONE ORDER SUPERVISOR Plan of Treatment Upcoming Encounters Date Type Department Care Team (Late st Contact Info) Description 12/09/2024 8:00 AM CDT Office Visit [facility] - Ophthalmology [address] [place] [address] [phone] Health Maintenance Due Date Last Done Comments HIV SCREENING 07/30/2019 HPV VACCINE (1 - 3-dose series) 07/30/2019 MENINGOCOCCAL (Group B) VACCINE SHARED DECISION-MAKING (1 of 2 - Standard) 2020 CHLAMYDIA/GONORRHEA SCREENING 03/10/2022 03/10/2021, 09/18/2013 HEPATITIS C SCREENING 07/25/2022 DTAP/TDAP/TD VACCINES (1 - Tdap) 07/30/2023 HEPATITIS B VACCINE (1 of 3 - 19+ 3-dose series) 07/30/2023 COVID-19 VACCINE (3 - 2023-25 season) 2023 02/06/2021, 01/16/2021 DEPRESSION SCREENING 04/30/2024 INFLUENZA VACCINE (#1) 2024 3, 01/21/2020, 02/18/2019, Additional history exists ZOSTER VACCINE (1 of 2) 2054 HIB [...] Probe Negative Negative 09/19/2013 12:08 PM CDT [facility] GC Amplified Probe Negative Negative 09/19/2013 12:08 PM CDT [facility] Urine URINE / Unknown 09/18/2013 9 :28 AM CDT 09/18/2013 9:52 AM CDT Narrative [facility] - 09/19/2013 12:08 PM CDT This test was developed and its performance characteristics determined by the [facility], [facility]. Female urine specimens tested by the [facility] have not been cleared or approved by the FDA. The laboratory is regulated under CLIA as qualified to perform high-complexity testing. This test is used for clinical purposes. It should not be regarded as investigational or for research. Results based on detection/no detection of ribosomal RNA by amplified method. us Neda Adam MD LAB - MICROBIOLOGY ORDERABLES Fi nal Result [facility] [address] [facility] [address], [place] from Last 3 Months or Most Recently Relevant to Health Maintenance Insurance [facility] Care Teams Data Collection Technician Relationship Specialty Start Date End Date Ryann Myles MD [address] [place] [phone] PCP - General Pediatrics 06/28/22
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
--- OUTSIDE RECORDS SUMMARY | 2024-11-24 13:29 | XMS_ITS | Data Portability ---
Author Organization [facility], Main Office Address [address] [place] [address] Assessment No assessment recorded. Plan of Treatment Reminders Order Date Submit Date Provider Last Modified By Organization Details Last Modified Time Details Appointments None recorded. Lab None recorded. Referral None recorded. Procedures None recorded. Surgeries None recorded. Imaging None recorded. Medication Orders fluticasone propionate 50 mcg/actuati on nasal spray,suspe nsion 2024 [id number], [address], [place], [id number], 11:10:33 loratadine 10 mg tablet 2024 [id number], [address], [place], [id number], 5 11:10:36 ciprofloxac in 500 mg tablet 2024 [facility], [address], [place], [id number], 5 11:10:36 Patient TargetsNo targets recorded. Patient Instructions Encounter Date Encounter Id Patient Instructions Last Modified By Organization Details Last Modified Time 07/24/2024 [id number] we will discuss weight next time [email or web address] Not available 07/28/2024 17:27:44 Reason for Referral None Reported. Problems Name Problem SNOMED Code Status Onset Date Resolution Date Notes Provider Name and Address Organization Details Recorded Time Eustachian tube disorder 11658816 Active 2024 MAX Tracy [address] [facility], [facility] [address], [place], [address], [facility] 11:05:24 Allergic rhinitis 64442796 Active 2024 MAX Tracy [address], [address], [place], [address], [facility] 11:05:40 Sinusitis 27195492 Active 2024 MAX Tracy [address], [place], [address], [facility] 11:05:58 Adult health examination Active 2024 MAX Tracy [address], [place], [address], [facility] 17:25:54 Obese 573799477 Active 2024 MAX Tracy [address], [address], [place], [address], [facility] 17:26:26 Problem Notes None recorded. Procedures Surgical History Date Name Laterality Status Provider Name and Address Organization Details Recorded Time delivery completed GARFIELD Dukes [facility] 07/24/2024 10:16:13 Imaging Results None recorded. Procedure Notes None recorded. Medical Equipment None Reported. Medications Name Sig Start Date Stop Date Status Note LastModified by Organization Details LastModified Time ciprofloxaci n 500 mg tablet Take 1 tablet every 12 hours by oral route for 10 days. 2024 active Not Available Not Available Not Avai lable fluticasone propionate 50 mcg/actuatio n nasal spray,suspen imelda [place] 1 spray twice a day by intranasal route for 30 days. 2024 active Not Available Not Available Not Avai lable loratadine 10 mg tablet Take 1 tablet every day by oral route for 30 days. 2024 active Not Available Not Available Not Avai lable Vitals Date Recorded Body weight Body mass index (BMI) [Percentile] Per age and sex Body mass index (BMI) Body height Oxygen saturation Oxygen saturation in Arterial blood by Pulse oximetry Systolic And Diastolic Provider Name and Address Organization Details Last Updated DateTime 22738.0 3 g 97.78 % 37.7 kg/m2 157.48 cm 98.02 % 98.02 % 118/80 mm[Hg] GARFIELD Dukes [facility] 10:20:58 Social History Question Answer Notes LastModified by Organizat ion Details LastModified Time Tobacco Smoking Status Current Some Day Smoker GARFIELD Dukes null, [facility] 07/24/2024 10:09:55 Do You Have An Advance Directive? No Information not available 07/24/2024 What Is Your Level Of Caffeine Consumption? Heavy Information not available 07/24/2024 In The 14 Days Before Symptom Onset, Have You Had Close Contact With A Laboratory-confi rmed COVID-19 While That Case Was Ill? No Information not available 07/24/2024 In The 14 Days Before Symptom Onset, Have You Had Close Contact With A Person Who Is Under Investigation For COVID-19 While That Person Was Ill? No Information not available 07/24/2024 What Type Of Diet Are You Following? REGULAR Information not available 07/24/2024 Which Illicit Or Recreational Drugs Have You Used? Marijuana Information not available 07/24/2024 What Is The Highest Grade Or Level Of School You Have Completed Or The Highest Degree You Have Received? KD53424-0 Information not available 07/24/2024 Have There Been Any Changes To Your Family Or Social Situation? Yes Information not available 07/24/2024 What Is The Fluoride Status Of Your Home? Unknown Information not available 07/24/2024 Are There Any Guns Present In Your Home? Yes Information not available 07/24/2024 How Many Years Have You Used Illicit Or Recreational Drugs? 3 Information not available 07/24/2024 Where Do You Live? [facility] Information not available 07/24/2024 How Many Children Do You Have? 1 Information not available 07/24/2024 Do You Have Any Pets? No Information not available 07/24/2024 What Is Your Relationship Status? Single Information not available 07/24/2024 Do You Use Your Seat Belt Or Car Seat Routinely? Yes Information not available 07/24/2024 Are You Sexually Active? Yes Information not available 07/24/2024 Do You Have Smoke And Carbon Monoxide Detectors In Your Home? Yes Information not available 07/24/2024 Are You Passively Exposed To Smoke? Yes Information not available 07/24/2024 Are There Any Smokers In Your House? No Information not available 07/24/2024 Do You Participate In Social Media? Yes Information not available 07/24/2024 Do You Use Sunscreen Routinely? No Information not available 07/24/2024 How Many Years Have You Smoked Tobacco? 3 Information not available 07/24/2024 Have You Recently Traveled Abroad? No Information not available 07/24/2024 Have You Used IV Drugs? No Information not available 07/24/2024 Are You Currently In School? No Information not available 07/24/2024 Do You Have Any Dietary Restrictions? No Information not available 07/24/2024 Sex: Unknown Functional Status Question Answer Note LastModified by Organizat ion Details LastModified Time Do you use any illicit or recreational drugs? Yes Information not available 07/24/2024 Do you or have you ever used any other forms of tobacco or nicotine? No Information not available 07/24/2024 What is your level of alcohol consumption? None Information not available 07/24/2024 Are you currently employed? Yes Information not available 07/24/2024 What is your occupation? Information not available 07/24/2024 What is your exercise level? None Information not available 07/24/2024 Mental Status Question Answer Note LastModified by Organization D etails LastModified Time Do you feel stressed (tense, restless, nervous, or anxious, or unable to sleep at night)? [id number] Information not available 07/24/2024 Family History Relationship Description Onset Age of this Age Resolved Age Notes LastModified by Organization Details LastModified Time Maternal Grandmother Diabetes mellitus alexandra Not available 07/24 10:07:48 Father Hypertensive disorder alexandra Not available 07/24 10:08:14 Father Glaucoma alexandra Not availab le 07/24/2024 10:08:26 Medical History No medical history recorded. Gynecological History Statement/Question Response How many live births 1 Current Control Method Other Flow Light Obstetrics History GPAL:G 0 P 0 0 0 0 Past Encounters Encounter ID Performer Location Encounter Start Date Encounter Closed Date Diagnosis/Indication Diagnosis SNOMED-CT Code Diagnosis ICD10 Code Diagnosis Note [id number] Benito Burden MD [facility] [address] [address] 07/24/2024 09:54:18 07/24/2024 11:14:04 Allergic rhinitis 73390615 J30.9 Eustachian tube disorder 75267912 H69.93 Sinusitis 72474170 J32.9 Adult heal th examination 273769484 Z00.00 Obese 555409916 E66.9 Health Concerns Section Related Observation LastModified by Organization Detai ls LastModified Time None Recorded Concern Status LastModified by Organization Details LastModified Time None Recorded Advance Directives Directive N: Payers Insurance Date Sequence Insurance Name Policy Number Policy Taylor Covered Member ID Taylor Member ID Guarantor Name 08/01/2024 [facility] Danielle Marquez SELF SELF Danielle Marquez 08/01/2024 1 [facility] ON OR AFTER 10/28/20 (MEDICAID REPLACEMENT - HMO) Danielle Marquez [id number] Danielle Marquez OBGyn Episode No OBEpisode recorded.
--- OUTSIDE RECORDS SUMMARY | 2024-11-24 13:29 | XMS_ITS | Referral Summary ---
Author Organization [facility] Address [address] [place] [address] Care Team Providers Care Data Entry Name Role Phone Unknown, Notinfile Primary Care [...] on file Legal Sex Female 8:54 AM DIRECTOR PROPERTY Gender Identity Not on file Sexual Orientation Not on file Last Filed Vital Signs Vital Sign Reading Time Taken Comments Blood Pressure 112/65 04/26/2023 10:16 AM DIRECTOR PROPERTY Pulse 90 04/26/2023 10:16 AM DIRECTOR PROPERTY Temperature 36.7 C (98.1 F) 04/26/2023 9:21 AM DIRECTOR PROPERTY Respiratory Rate 18 04/26/2023 10:16 AM DIRECTOR PROPERTY Oxygen Saturation 100% 04/26/2023 10:16 AM DIRECTOR PROPERTY Inhaled Oxygen Concentration - - Weight 63.5 kg (140 lb) 04/26/2023 9:21 AM DIRECTOR PROPERTY Height 157.5 cm (5' 2) 04/26/2023 9:21 AM DIRECTOR PROPERTY Body Mass Index 25.61 04/26/2023 9:21 AM DIRECTOR PROPERTY Plan of Treatment Not on file Insurance ANTHEM ACCESS CHOICE ANTHEM ACCESS CHOICE Care Teams Data Entry Relationship Specialty Start Date End Date Unknown, Notinfile PCP - General 04/26/23
--- OUTSIDE RECORDS SUMMARY | 2024-11-24 13:29 | XMS_ITS | Clinical Summary ---
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 Gender Identity Not on file Sexual Orientation Not on file Obstetrics History Last Filed Vital Signs Vital Sign Reading Time Taken Comments Blood Pressure 112/65 04/26/2023 10:16 AM ELECTROMECHANICAL ASSEMBLY TECHNICIAN Pulse 90 04/26/2023 10:16 AM ELECTROMECHANICAL ASSEMBLY TECHNICIAN Temperature 36.7 C (98.1 F) 04/26/2023 9:21 AM ELECTROMECHANICAL ASSEMBLY TECHNICIAN Respiratory Rate 18 04/26/2023 10:16 AM ELECTROMECHANICAL ASSEMBLY TECHNICIAN Oxygen Saturation 100% 04/26/2023 10:16 AM ELECTROMECHANICAL ASSEMBLY TECHNICIAN Inhaled Oxygen Concentration - - Weight 63.5 kg (140 lb) 04/26/2023 9:21 AM ELECTROMECHANICAL ASSEMBLY TECHNICIAN Height 157.5 cm (5' 2) 04/26/2023 9:21 AM ELECTROMECHANICAL ASSEMBLY TECHNICIAN Body Mass Index 25.61 04/26/2023 9:21 AM ELECTROMECHANICAL ASSEMBLY TECHNICIAN Plan of Treatment Health Maintenance Due Date Last Done Comments Depression Screening 2004 Hepatitis C Screening 2004 Meningococcal B Vaccine (1 o f 2 - Standard) 2020 Regular Well Visit/Exam 18-64 2022 Influenza Vaccine (#1) 2024 , 01/21/2020, 02/18/2019, Additional history exists DTaP/Tdap/Td Vaccine (6 - Td or Tdap) 03/03/2026 03/03/2016, 12/24/2008, 02/28/2007, Additional history exists Pneumococcal vaccine <65 Completed 11/29/2006, 04/30 Hepatitis B Screening Completed 08/27/2007 , 11/29/2006, 11/29/2006, Additional history exists Varicella Vaccines Completed 12/24/2008, 0 12/24/2008, 11/29/2006 HPV Vaccines Completed 08/01/2017, 03/03/2016 Meningococcal Vaccine Completed 05/09/2022, 016 Insurance [employer] Care Teams Director Information Relationship Specialty Start Date End Date Unknown, Notinfile PCP - General 04/26/23
--- OUTSIDE RECORDS SUMMARY | 2024-11-24 13:29 | XMS_ITS | Clinical Summary ---
Author Organization [facility] Address [address] [place] [address] Care Team Providers Care Pathology Specialist Name Role Phone None, Provider MD Primary [...] 07/2020 PTSD (post-traumatic stress disorder) 06/03/2020 Immunizations Immunization Administration Dates Next Due [id number] (Pediarix) 11/29/2006 DTaP-IPV (Kinrix) 12/24/2008 DTaP-IPV/Hib (Pentacel) [...] on file Legal Sex Female 9:19 AM DISTRIBUTION CENTER MANAGER Gender Identity Not on file Sexual Orientation Not on file Last Filed Vital Signs Vital Sign Reading Time Taken Comments Blood Pressure 118/74 03/28/2023 10:06 AM DISTRIBUTION CENTER MANAGER Pulse 90 03/28/2023 10:06 AM DISTRIBUTION CENTER MANAGER Temperature 36.4 C (97.6 F) 03/28/2023 10:06 AM DISTRIBUTION CENTER MANAGER Respiratory Rate 16 03/28/2023 10:06 AM DISTRIBUTION CENTER MANAGER Oxygen Saturation 100% 03/28/2023 10:06 AM DISTRIBUTION CENTER MANAGER Inhaled Oxygen Concentration - - Weight 67.3 kg (148 lb 5.9 oz) 03/28/2023 10:06 AM DISTRIBUTION CENTER MANAGER Height 157.5 cm (5' 2) 03/28/2023 10:06 AM DISTRIBUTION CENTER MANAGER Body Mass Index 27.14 03/28/2023 10:06 AM DISTRIBUTION CENTER MANAGER Plan of Treatment Health Maintenance Due Date Last Done Comments Meningococcal B Vaccine (1 of 2 - Standard) 2020 Annual Physical 06/02/2021 06/02/2020 Hepatitis C 2022 COVID-19 Vaccine ( season) 2023 DTaP, Tdap and Td Vaccines (6 - Td or Tdap) 03/03/2026 03/03/2016, 12/24/2008, 02/28/2007, Additional history exists Pneumococcal Vaccine: Pediatrics (0 to 5 Years) and At-Risk Patients (6 to 49 Years) Aged Out 11/29/2006, 05/17/2005 No longer [...] patient's age to complete this topic Insurance [facility] Care Teams Pathology Specialist Relationship Specialty Start Date End Date None, Provider, PCP - General UNKNOWN PHYSICIAN SPECIALTY 03/28/23
[2024-11-24 13:31] VITALS: BP 125/81; PULSE 98; RESP 18; TEMP 36.4; O2SAT 99
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
[2024-11-24 17:54] LABS: BEDSIDEPREGUCG Negative (Negative)
[2024-11-24 18:10] LABS: Add Urine Microscopic? YES; Appearance Urine Cloudy (Clear); Glucose Urine UA Negative (Negative); Leukocyte Esterase Ur Trace LEU/UL (Negative); Need Manual Microscopic Reviewed; Nitrate Urine Negative (Negative); Non Pathogenic Casts 0-2; Specific Grav Ur 1.035 (1.001-1.035)
--- OUTSIDE RECORDS SUMMARY | 2024-11-24 18:19 | XMS_ITS | Referral Summary ---
Author Organization [facility] al Address [address] [place] [address] Care Team Providers Care Winder Tender Name Role Phone Unknown, Notinfile Primary Care [...] on file Legal Sex Female 8:54 AM CREDIT UNION MANAGER Gender Identity Not on file Sexual Orientation Not on file Last Filed Vital Signs Vital Sign Reading Time Taken Comments Blood Pressure 112/65 04/26/2023 10:16 AM CREDIT UNION MANAGER Pulse 90 04/26/2023 10:16 AM CREDIT UNION MANAGER Temperature 36.7 C (98.1 F) 04/26/2023 9:21 AM CREDIT UNION MANAGER Respiratory Rate 18 04/26/2023 10:16 AM CREDIT UNION MANAGER Oxygen Saturation 100% 04/26/2023 10:16 AM CREDIT UNION MANAGER Inhaled Oxygen Concentration - - Weight 63.5 kg (140 lb) 04/26/2023 9:21 AM CREDIT UNION MANAGER Height 157.5 cm (5' 2) 04/26/2023 9:21 AM CREDIT UNION MANAGER Body Mass Index 25.61 04/26/2023 9:21 AM CREDIT UNION MANAGER Plan of Treatment Not on file Insurance ANTHEM ACCESS CHOICE ANTHEM ACCESS CHOICE Care Teams Winder Tender Relationship Specialty Start Date End Date Unknown, Notinfile PCP - General 04/26/23
--- OUTSIDE RECORDS SUMMARY | 2024-11-24 18:19 | XMS_ITS | Clinical Summary ---
Author Organization [facility] al Address [address] [place] [address] Care Team Providers Care Materials Mgmt Tech Name Role Phone Unknown, Notinfile Primary [...] on file Legal Sex Female 8:54 AM BLOCK BREAKER OPERATOR Gender Identity Not on file Sexual Orientation Not on file Obstetrics History Last Filed Vital Signs Vital Sign Reading Time Taken Comments Blood Pressure 112/65 04/26/2023 10:16 AM BLOCK BREAKER OPERATOR Pulse 90 04/26/2023 10:16 AM BLOCK BREAKER OPERATOR Temperature 36.7 C (98.1 F) 04/26/2023 9:21 AM BLOCK BREAKER OPERATOR Respiratory Rate 18 04/26/2023 10:16 AM BLOCK BREAKER OPERATOR Oxygen Saturation 100% 04/26/2023 10:16 AM BLOCK BREAKER OPERATOR Inhaled Oxygen Concentration - - Weight 63.5 kg (140 lb) 04/26/2023 9:21 AM BLOCK BREAKER OPERATOR Height 157.5 cm (5' 2) 04/26/2023 9:21 AM BLOCK BREAKER OPERATOR Body Mass Index 25.61 04/26/2023 9:21 AM BLOCK BREAKER OPERATOR Plan of Treatment Health Maintenance Due Date [...] 03/03/2016 Meningococcal Vaccine Completed 05/09/2022, 016 Insurance [employer] Care Teams Materials Mgmt Tech Relationship Specialty Start Date End Date Unknown, Notinfile PCP - General 04/26/23
--- OUTSIDE RECORDS SUMMARY | 2024-11-24 18:19 | XMS_ITS | Clinical Summary ---
Author Organization [facility] Address [address] [place] [address] Care Team Providers Care Medicinal Chemist Name Role Phone None, Provider MD Primary [...] 06/03/2020 Immunizations Immunization Administration Dates Next Due [id number] (Pediarix) 11/29/2006 DTaP-IPV (Kinrix) 12/24/2008 DTaP-IPV/Hib (Pentacel) [...] on file Legal Sex Female 9:19 AM PACKAGE CENTER SUPERVISOR Gender Identity Not on file Sexual Orientation Not on file Last Filed Vital Signs Vital Sign Reading Time Taken Comments Blood Pressure 118/74 03/28/2023 10:06 AM PACKAGE CENTER SUPERVISOR Pulse 90 03/28/2023 10:06 AM PACKAGE CENTER SUPERVISOR Temperature 36.4 C (97.6 F) 03/28/2023 10:06 AM PACKAGE CENTER SUPERVISOR Respiratory Rate 16 03/28/2023 10:06 AM PACKAGE CENTER SUPERVISOR Oxygen Saturation 100% 03/28/2023 10:06 AM PACKAGE CENTER SUPERVISOR Inhaled Oxygen Concentration - - Weight 67.3 kg (148 lb 5.9 oz) 03/28/2023 10:06 AM PACKAGE CENTER SUPERVISOR Height 157.5 cm (5' 2) 03/28/2023 10:06 AM PACKAGE CENTER SUPERVISOR Body Mass Index 27.14 03/28/2023 10:06 AM PACKAGE CENTER SUPERVISOR Plan of Treatment Health Maintenance Due Date [...] patient's age to complete this topic Insurance [facility] Care Teams Medicinal Chemist Relationship Specialty Start Date End Date None, Provider, PCP - General UNKNOWN PHYSICIAN SPECIALTY 03/28/23
--- OUTSIDE RECORDS SUMMARY | 2024-11-24 18:19 | XMS_ITS | Clinical Summary ---
Author Organization [facility] Address [address] [place] [address] Care Team Providers Care Heel Molder Name Role Phone Ryann Myles MD Primary Care Provider [phone] Source Comments [facility],non-owned Affiliates and Associated Physician Practices is amultiple site organization consisting of ambulatory clinics and hospital sitesin [place], [place], [place] and [place]. This disclosure is being madepursuant to the Care Everywhere program and may not contain all information available regarding this patient. Last updated 18.[facility] [employer] Allergies No known active allergies Medications * [...] evening meal 5 Active neomycin-polymy vannessa-hc (Cortisporin) [id number] otic suspension Instill 4 (four) drops into [...] on file Legal Sex Female 5:44 AM GROUNDS WORKER Gender Identity Not on file Sexual Orientation Not on file Last Filed Vital Signs Vital Sign Reading Time Taken Comments Blood Pressure 112/64 07/07/2022 9:30 PM GROUNDS WORKER Pulse 86 07/07/2022 9:30 PM GROUNDS WORKER Temperature 36.7 C (98.1 F) 07/07/2022 9:30 PM GROUNDS WORKER Respiratory Rate 20 07/07/2022 9:30 PM GROUNDS WORKER Oxygen Saturation 100% 07/07/2022 9:30 PM GROUNDS WORKER Inhaled Oxygen Concentration - - Weight 67.9 kg (149 lb 11.1 oz) 07/07/2022 9:30 PM GROUNDS WORKER Height 156 cm (5' 1.42) 07/07/2022 9:30 PM GROUNDS WORKER Body Mass Index 27.9 07/07/2022 9:30 PM GROUNDS WORKER Plan of Treatment Upcoming Encounters Date Type Department Care Team (Late st Contact Info) Description 12/09/2024 8:00 AM CDT Office Visit [facility] - Ophthalmology [address] [place] [phone] Health Maintenance Due Date Last Done Comments [...] Probe Negative Negative 09/19/2013 12:08 PM CDT [facility] GC Amplified Probe Negative Negative 09/19/2013 12:08 PM CDT [facility] Urine URINE / Unknown 09/18/2013 9 :28 AM CDT 09/18/2013 9:52 AM CDT Narrative [facility] - 09/19/2013 12:08 PM CDT This test was developed and its performance characteristics determined by the [facility], [facility]. Female urine specimens tested by the [facility] have not been cleared or approved by the FDA. The laboratory is regulated under CLIA as qualified to perform high-complexity testing. This test is used for clinical purposes. It should not be regarded as investigational or for research. Results based on detection/no detection of ribosomal RNA by amplified method. us eNda Adam MD LAB - MICROBIOLOGY ORDERABLES Fi nal Result [facility] [address] [facility] [place] [address], [facility] from Last 3 Months or Most Recently Relevant to Health Maintenance Insurance [facility] Care Teams Heel Molder Relationship Specialty Start Date End Date Ryann Myles MD [address] [place] [id number] PCP - General Pediatrics 06/28/22
[2024-11-24 19:19] LABS: Hematocrit 41.1 % (37.0-47.0); Hemoglobin 13.4 g/dL (12.0-15.0); Immature Granulocyte Percent A 0.4 % (0-0.5); Lymphocytes Absolute Auto 3.82 K/mm3 (0.9-3.2); Mean Corpuscular HGB Conc 32.6 g/dl (32-36); Mean Corpuscular Hemoglobin 26.9 pg (26-34); Mean Corpuscular Volume 82.4 fl (80-100); Nucleated Red Blood Cells Absolute Auto 0.000 K/mm3 (0.0-0.012); Nucleated Red Blood Cells Perc 0.0 % (0.0-0.2); Platelet Count Result 262 k/mm3 (150-375); Red Blood Count 4.99 M/mm3 (4.2-5.4); White Blood Count 10.4 K/mm3 (4.5-10.0)
[2024-11-24 19:31] LABS: Alanine Aminotransferase 28 U/L (6-35); Albumin Level 4.5 g/dL (3.5-5.1); Alkaline Phosphatase 108 U/L (38-126); Anion Gap 13 mmol/L (4-12); Aspartate Amino Transferase 29 U/L (14-36); Bilirubin,Total 0.6 mg/dL (0.2-1.3); Blood Urea Nitrogen 12 mg/dL (7-17); Calcium 9.6 mg/dL (8.4-10.2); Carbon Dioxide 19 mmol/L (22-30); Chloride 106 mmol/L (98-107); Estimated CRCL calculation 125 ml/min; Estimated Glomerular Filt Rate > 60; Glucose 93 mg/dL (65-110); Potassium 3.7 mmol/L (3.4-5.0); Sodium 138 mmol/L (137-145); Total Protein 8.3 g/dL (6.3-8.2)
[2024-11-24 19:33] LABS: Estimated CRCL calculation 131 ml/min; Estimated Glomerular Filt Rate > 60
--- NOTE | 2024-11-24 21:17 | PC.NURSE ---
EDP [facility] at bedside to remove C-collar
== END 2024-11-24 22:04 | disposition home or self-care (01) ==
PROVIDERS: Registered Nurse; Emergency Provider Physician Assistant; PCP Emergency Medicine
DX: S16.1XXA Strain of muscle, fascia and tendon at neck level, initial encounter (principal); S09.90XA Unspecified injury of head, initial encounter; K76.89 Other specified diseases of liver; R91.8 Other nonspecific abnormal finding of lung field; V49.40XA Driver injured in collision with unspecified motor vehicles in traffic accident, initial encounter
CPT/HCPCS: 36415; 70450; 71260; 72125; 72129; 72132; 74177; 80053; 81001; 81025; 85025; 99284; Q9967

== ENCOUNTER 2024-12-19 09:33 | Outpatient (CLI) | payer OTHER, SELFPAY ==
--- NOTE | ~2024-12-19 | US_ITS ---
EXAMINATION TYPE: US breast BI limited COMPARISON: NONE REASON FOR STUDY: MASS OF BREAST TECHNIQUE: Targeted sonographic evaluation of the bilateral breasts was performed. INTERPRETATION: Sonographic imaging performed at the 7:00 position left breast, 9 cm from nipple, and at the 4:00 position right breast, 6 cm from the nipple. No solid or cystic lesion. No sonographic abnormality seen in the regions scanned. IMPRESSION: No sonographic abnormality seen in the regions scanned bilaterally. BI-RADS CATEGORY: BI-RADS 1: Negative Reviewed, dictated and finalized at location M.
--- OUTSIDE RECORDS SUMMARY | 2024-12-19 09:38 | XMS_ITS | Clinical Summary ---
Author Organization [facility] Address [address] [place] [address] Care Team Providers Care Physician/Internist Name Role Phone Ryann Myles MD Primary Care Provider [phone] Source Comments [facility],non-owned Affiliates and Associated Physician Practices is amultiple site organization consisting of ambulatory clinics and hospital sitesin [place], [place], [place] and [place]. This disclosure is being madepursuant to the Care Everywhere program and may not contain all information available regarding this patient. Last updated 18.[facility] [employer] Allergies No known active allergies Medications * [...] evening meal 5 Active neomycin-polymy vannessa-hc (Cortisporin) 3.5-93937-3 otic suspension Instill 4 (four) drops into right ear 4 times daily 5 Active Active Problems Problem Noted Date Diagnosed Date Maternal care for excessive growth, third trimester, not applicable or unspecified 07/09/2024 Overview (07/09/2024): 97% Encounters Date Type Department Care Team Description 12/09/2024 Travel 10/01/2024 Travel from Last 3 Months Social History Tobacco Use Types Packs/Day Years Used Date Smoking Tobacco: Never Smokeless Tobacco: Never Alcohol Use Standard Drinks/Week Comments No 0 (1 standard drink = 0.6 oz pur e alcohol) Comments No Sex and Gender Information Value Date Recorded Sex Assigned at Not on file Legal Sex Female 5:44 AM 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 Gender Identity Not on file Sexual Orientation Not on file Last Filed Vital Signs Vital Sign Reading Time Taken Comments Blood Pressure 112/64 07/07/2022 9:30 PM 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 Pulse 86 07/07/2022 9:30 PM 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 Temperature 36.7 C (98.1 F) 07/07/2022 9:30 PM 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 Respiratory Rate 20 07/07/2022 9:30 PM 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 Oxygen Saturation 100% 07/07/2022 9:30 PM 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 Inhaled Oxygen Concentration - - Weight 67.9 kg (149 lb 11.1 oz) 07/07/2022 9:30 PM 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 Height 156 cm (5' 1.42) 07/07/2022 9:30 PM 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 Body Mass Index 27.9 07/07/2022 9:30 PM 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 Plan of Treatment Health Maintenance Due Date Last Done Comments HIV SCREENING 07/30/2019 HPV VACCINE (1 - 3-dose series) 07/30/2019 MENINGOCOCCAL (Group B) VACCINE SHARED DECISION-MAKING (1 of 2 - Standard) 2020 CHLAMYDIA/GONORRHEA SCREENING 03/10/2022 03/10/2021, 09/18/2013 HEPATITIS C SCREENING 07/25/2022 DTAP/TDAP/TD VACCINES (1 - Tdap) 07/30/2023 HEPATITIS B VACCINE (1 of 3 - 19+ 3-dose series) 07/30/2023 COVID-19 VACCINE (2023-25 season) 2023 02/06/2021, 01/16/2021 DEPRESSION SCREENING 04/30/2024 [...] Probe Negative Negative 09/19/2013 12:08 PM CDT [facility] GC Amplified Probe Negative Negative 09/19/2013 12:08 PM CDT [facility] Urine URINE / Unknown 09/18/2013 9 :28 AM CDT 09/18/2013 9:52 AM CDT Narrative [facility] - 09/19/2013 12:08 PM CDT This test was developed and its performance characteristics determined by the [facility], [facility]. Female urine specimens tested by the [facility] have not been cleared or approved by the FDA. The laboratory is regulated under CLIA as qualified to perform high-complexity testing. This test is used for clinical purposes. It should not be regarded as investigational or for research. Results based on detection/no detection of ribosomal RNA by amplified method. us Neda Adam MD LAB - MICROBIOLOGY ORDERABLES Fi nal Result [facility] [address] [place] [id number] from Last 3 Months or Most Recently Relevant to Health Maintenance Insurance [facility] Care Teams Physician/Internist Relationship Specialty Start Date End Date Ryann Myles MD [address] [place] [address] PCP - General Pediatrics 06/28/22
--- OUTSIDE RECORDS SUMMARY | 2024-12-19 09:38 | XMS_ITS | Clinical Summary ---
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[employer] Gender Identity Not on file Sexual Orientation Not on file Obstetrics History Last Filed Vital Signs Vital Sign Reading Time Taken Comments Blood Pressure 112/65 04/26/2023 10:16 AM [employer] Pulse 90 04/26/2023 10:16 AM [employer] Temperature 36.7 C (98.1 F) 04/26/2023 9:21 AM [employer] Respiratory Rate 18 04/26/2023 10:16 AM SH[employer] Oxygen Saturation 100% 04/26/2023 10:16 AM [employer] Inhaled Oxygen Concentration - - Weight 63.5 kg (140 lb) 04/26/2023 9:21 AM [employer] Height 157.5 cm (5' 2) 04/26/2023 9:21 AM [employer] Body Mass Index 25.61 04/26/2023 9:21 AM SHANK [employer] HAND Plan of Treatment Health Maintenance Due Date [...] 03/03/2016 Meningococcal Vaccine Completed 05/09/2022, 016 Insurance [employer] Care Teams Vice President Diversity Relationship Specialty Start Date End Date Unknown, Notinfile PCP - General 04/26/23
== END 2024-12-19 09:34 | disposition home or self-care (01) ==
LOC: ANHFOHIMG 09:36
PROVIDERS: PCP Emergency Medicine; Visit Provider Nurse Practitioner
DX: N63.0 Unspecified lump in unspecified breast (principal)
CPT/HCPCS: 76642